=== PATIENT | male | born 1950 | race Caucasian/White ===

== ENCOUNTER 2019-01-22 19:39 | Inpatient (IN) | payer MEDICARE ==
[~2019-01-22] VITALS: Ht 182.9 cm; Wt 98.6 kg
--- NOTE | ~2019-01-22 | HEMODYNAMI ---
PATIENT:JUANITA GARVEY MEDICAL RECORD: [id number] : 50 [address] [id number] ADMISSION DATE: 01/22/19 Generatedon:01/24/201915:48 Patient name: JUANITA GARVEY Patient #: [id number] SSN: : 1950 Date of study: 01/24/2019 Page: Of Hemodynamic Procedure Report Patient Data Patient Demographics Procedure consent was obtained First Name: JUANITA Gender: Male Last Name: GURU : 1950 Patient #: [id number] Age: 68 year(s) Race: Additional ID: [id number] Contact details Address: [address] [place] [address] State: [place] City: [place] Zip code: [address] Past Medical History Allergies Allergen Reaction Date Comments Reported Penicillins 01/24/2019 Admission Admission Data Admission Date: 01/22/2019 Admission Time: 20:02 Room #: [facility] Height (in.): 72 BSA: 2.22 (m2) Height (cm.): 182.88 BMI: 29.9 (kg/m2) Weight (lbs.): 220.46 Weight (kg.): 100 Lab Results Lab Result Date: 01/24/2019 Lab Result Time: 0:00 Biochemistry Name Units Result Min Max BUN mg/dl 19 --(----)*- 7 18 Creatinine mg/dl 0.9 --(-*--)-- 0.6 1.3 eGFR ml/min 88.78595 -*(----)-- 90 120 NONAFRICAN CBC Name Units Result Min Max Hematocrit % 37.4 *-(----)-- 42 54 Hemoglobin g/dl 12.7 -*(----)-- 13.5 17.5 Procedure Procedure Types Cath Procedure Diagnostic Procedure LHC LH w/Coronaries Sedation Charges Moderate Sedation up to 45 minutes PCI Procedure Coronary Stent Coronary Stent Initial Procedure Description Procedure Date Procedure Date: 01/24/2019 Procedure Start Time: 14:38 Procedure End Time: 15:41 Procedure Staff Name Function Augustin Dior MD Performing Physician Mavis Bone RT Monitor Marcie Chirinos RT Scrub Juan Irwin RN Nurse Procedure Data Cath Procedure Fluoroscopy Diagnostic fluoroscopy Total fluoroscopy Time: time: 20.8 min 20.8 min Diagnostic fluoroscopy Total fluoroscopy dose: dose: 3195 mGy 3195 mGy Contrast Material Contrast Material Type Amount (ml) Isovue 300 210 Entry Location Entry Primary Successful Side Size Upsize Upsize Entry Closure Succes sful Closure Location (Fr) 1 (Fr) 2 (Fr) Remarks Device Remarks Femoral Right 5 Fr 6 Fr 6 Fr Exoseal artery Short Long Estimated blood loss: 10 ml Diagnostic catheters Device Type Used For End Catheter Placement MULTIPACK JL 4.0 5Fr Procedure catheter MULTIPACK 3DRC 5Fr Procedure catheter MULTIPACK Pigtail 5 Fr Procedure catheter Procedure Complications No complications Procedure Medications Medication Administration Route Dosage 0.9% NaCl I.V. 100 ml/hr Oxygen 9 l/min Heparin Flush Bag added to field 2 bags (1000units/500ml NS) Lidocaine 2% added to field 20 Versed I.V. 0.5 mg Fentanyl I.V. 25 mcg Fentanyl I.V. 25 mcg Heparin Bolus I.V. 5000 units Fentanyl I.V. 50 mcg Versed I.V. 0.5 mg Plavix P.O. 75 mg Hemodynamics Rest BSA: 2.22 (m2) O2 Consumption: Estimated: 257.52 (ml/min) O2 Consumption indexed : Estimated:116 (ml/min/m) Heart Rate: 70 (bpm) Pressure Samples Time Site Value (mmHg) Purpose Heart Use Rate(bpm) 14:45 LV 164/13,17 Snapshot 73 14:45 AO 167/90(116) Pullback 65 Gradients Valve Time Site Site 2 Mean SEP/DFP Peak To Heart Use 1 (mmHg) (sec/min) Peak Rate (mmHg) (bpm) Aortic 14:45 LV AO 10 17 65 167/90(116) Calculations Valve P-P Mean Valve Index Valve Source Name Gradient Area Flow (cm2) Aortic 10 10 Snapshots Pre Cath Intra NCS Post Cath Vital Signs Time Heart Resp SPO2 etCO2 NIBP (mmHg) Rhythm Pain Sedation Rate (ipm) (%) (mmHg) Status Level (bpm) 14:22:12 79 21 91 0 163/93(140) A-Fib 0 (11) 9(A) , No pain 14:26:38 69 23 91 0 161/86(133) A-Fib 0 (11) 9(A) , No pain 14:31:02 71 21 90 0 153/84(124) A-Fib 0 (11) 9(A) , No pain 14:35:26 72 20 90 0 158/84(120) A-Fib 0 (11) 9(A) , No pain 14:40:38 70 20 90 0 155/86(117) A-Fib 0 (11) 9(A) , No pain 14:45:02 79 20 94 0 157/86(124) A-Fib 0 (11) 9(A) , No pain 14:49:28 70 21 90 0 156/83(124) A-Fib 0 (11) 9(A) , No pain 14:53:49 78 22 92 0 144/77(117) A-Fib 0 (11) 9(A) , No pain 14:58:13 71 20 90 0 146/73(109) A-Fib 0 (11) 9(A) , No pain 15:02:27 74 21 90 0 83/44(64) A-Fib 0 (11) 9(A) , No pain 15:07:24 78 22 88 0 123/67(111) A-Fib 0 (11) 9(A) , No pain 15:11:38 62 20 89 0 144/84(111) A-Fib 0 (11) 9(A) , No pain 15:16:00 73 19 89 0 142/78(119) A-Fib 0 (11) 9(A) , No pain 15:20:14 79 19 89 0 140/85(121) A-Fib 0 (11) 9(A) , No pain 15:24:34 72 21 88 0 129/73(103) A-Fib 0 (11) 9(A) , No pain 15:28:56 76 21 88 0 123/59(88) A-Fib 0 (11) 9(A) , No pain 15:33:10 68 21 89 0 123/69(102) A-Fib 0 (11) 9(A) , No pain 15:38:15 79 24 92 0 152/81(125) A-Fib 0 (11) 9(A) , No pain Medications Time Medication Route Dose Verified Delivered Reason Notes Effectiveness by by 14:21:02 0.9% NaCl I.V. 100 Juan Juan Per physician ml/hr Alida Irwin RN RN 14:21:27 Oxygen high 9 Juan Juan for low 02 sats flow l/min Alida NEGRETE RN RN 14:21:39 Heparin Flush added 2 Juan Juan used for Bag to bags Alida Irwin procedure (1000units/500ml field RN RN NS) 14:21:49 Lidocaine 2% added 20ml Juan Juan for local to vial Alida Irwin anesthetic field RN RN 14:38:45 Versed I.V. 0.5 Juan Juan for sedation mg Alida Irwin RN RN 14:38:55 Fentanyl I.V. 25 Juan Juan for sedation mcg Alida Irwin RN RN 14:55:03 Fentanyl I.V. 25 Juan Juan for sedation mcg Alida Irwin RN RN 14:55:15 Heparin Bolus I.V. 5000 Juan Juan for units Alida Irwin anticoagulation RN RN 15:07:32 Fentanyl I.V. 50 Juan Juan for chest pain mcg Alida Irwin RN RN 15:33:02 Versed I.V. 0.5 Juan Juan for sedation mg Alida Irwin RN RN 15:35:46 Plavix P.O. 75 mg Juan Juan for Alida Irwin antiplatelet RN RN therapy Procedure Log Time Note 13:54:33 Informed consent obtained and on chart 13:56:16 Patient Weight : 220.46 lbs 13:56:24 Procedure Status Urgent Heart Cath (IP). 13:56:26 Time tracking: Regular hours (M-F 7:00 - 5:00) 13:56:31 Plan of Care:Hemodynamics will remain stable., Cardiac rhythm will remain stable., Comfort level will be maintained., Respiratory function will remain adequate., Patient/ family verbilizes understanding of procedure., Procedure tolerated without complication., Recovers from procedure without complications.. 13:58:33 Patient Height : 72 inches 13:59:56 Patient allergic to Penicillins 14:00:44 Lab Result : BUN 19 mg/dl 14:00:44 Lab Result : Creatinine 0.9 mg/dl 14:00:44 Lab Result : eGFR NONAFRICAN 88.81010 ml/min 14:00:44 Lab Result : Hemoglobin 12.7 g/dl 14:00:44 Lab Result : Hematocrit 37.4 % 14:02:41 Juan Irwin RN sent for patient. Start room use. 14:20:52 Vital chart was started 14:21:02 0.9% NaCl 100 ml/hr I.V. was administered by Juan Irwin RN; Per physician; 14:21:27 Oxygen 9 l/min high flow NC was administered by Juan Irwin RN; for low 02 sats; 14:21:39 Heparin Flush Bag (1000units/500ml NS) 2 bags added to field was administered by Juan Irwin RN; used for procedure; 14::49 Lidocaine 2% 20ml vial added to field was administered by Juan Irwin RN; for local anesthetic; 14:23:16 Patient received from CVICU to CCL 1 Alert and oriented. Tansferred to table in Supine position. 14:23:17 Warm blankets applied, and jane hugger turned on for patient comfort. 14:23:18 Correct patient and procedure confirmed by team. 14:23:18 ECG and BP/O2 sat monitors applied to patient. 14:23:23 Full Disclosure recording started 14:23:23 Pre-procedure instructions explained to patient. 14:23:23 Pre-op teaching completed and patient verbalized understanding. 14:23:26 Family in waiting room. 14:23:27 Patient NPO since Midnight. 14:23:32 Is the patient allergic to Iodine/contrast media? No. 14:23:32 Is patient on blood thinner?Yes 14:23:49 PRELOADED ON PLAVIX 9.18 14:23:51 Patient diabetic? No. 14:23:53 Previous problem with sedation/anesthesia? No ? 14:23:54 Snore? Yes 14:23:55 Sleep apnea? Yes 14:23:56 Deviated septum? No 14:23:56 Opens mouth fully? Yes 14:23:58 Sticks out tongue? Yes 14:24:01 Airway obstruction? No ? 14:24:02 Dentures? No ? 14:24:06 Pre procedure: right dorsailis pedis pulse Doppler 14:24:37 IV patent on arrival in right wrist with 0.9% NaCl at [facility]. 14:24:40 Lab results completed and on chart. 14:24:55 Right groin area was prepped with chlora-prep and draped in sterile fashion 14::56 Alarms reviewed by R. N. 14::56 Sharps counted by scrub and verified by R.N. 14:25:07 Baseline sample Acquired. 14:25:11 Rhythm: atrial fibrillation 14:26:04 Use device set Femoral Dx 14:26:05 ACIST Syringe (97623) opened to sterile field. 14:26:05 Bag Decanter (2002S) opened to sterile field. 14:26:06 ACIST Hand Control (24855) opened to sterile field. 14:26:07 ACIST Manifold (19397) opened to sterile field. 14:26:08 Tegaderm 4 x 4 (1626W) opened to sterile field. 14:26:08 Medline Cath Pack ([id number]) opened to sterile field. 14:26:09 DIAGNOSTIC Multipack 5Fr catheter set (VZ9647) opened to sterile field. 14:26:10 SHEATH 5FR Gilberts (OLG154) opened to sterile field. 14:26:10 EMERALD Guide Wire (407-549) opened to sterile field. 14:30:09 Zero performed for pressure channel P1 14:32:43 --------ALL STOP TIME OUT------ 14:32:44 Final Timeout: patient, procedure, and site verified with staff and physician. All members of the team are in agreement. 14:32:55 Right groin site verified by team. 14:32:59 Fire Safety Assessment: A--An alcohol-based skin anteseptic being used preoperatively., C--Open oxygen or nitrous oxide is being used., D--An ESU, laser, or fiber-optic light is being used. 14:33:05 Physical assessment completed. ASA score P 2 - A patient with mild systemic disease as per Augustin Dior MD. 14:33:17 2) 60-89 Mildly reduced kidney function, and other findings (as for stage 1) point to kidney disease. 14:33:20 Maximum allowable contrast dose (3.7 X eGFR X 0.75)247 ml. 14:33:23 Sedation plan: IV Moderate Sedation Medication:Versed, Fentanyl 14:38:01 Procedure started. 14:38:18 Local anesthetic to right femoral artery with Lidocaine 2% by Augustin Dior MD.INITIAL ACCESS ONLY 14:38:45 Versed 0.5 mg I.V. was administered by Juan Irwin RN; for sedation; 14:38:55 Fentanyl 25 mcg I.V. was administered by Juan Irwin RN; for sedation; 14:39:08 A 5 Fr sheath was inserted into the Right Femoral artery 14:39:31 A MULTIPACK JL 4.0 5Fr catheter was advanced over the wire and used for Procedure. 14:42:29 LCA angiography performed. 14:42:31 Catheter removed. 14:42:35 A MULTIPACK 3DRC 5Fr catheter was advanced over the wire and used for Procedure. 14:43:52 RCA angiography performed. 14:43:58 Catheter removed. 14:44:12 A MULTIPACK Pigtail 5 Fr catheter was advanced over the wire and used for Procedure. 14:44:53 LV gram done using BOND 14:44:55 Injector settings: Ml/sec: 10, Volume: 20, 14:45:30 LV hemodynamics recorded. 14:45:48 EF : 55 % 14:45:49 Catheter removed. 14:46:17 SHEATH 6FR Gilberts (HLW641) opened to sterile field. 14:46:17 GUIDE 6FR XBLAD 3.5 catheter ([id number]) opened to sterile field. 14:46:18 WHISPER 300cm guide wire ([id number]) opened to sterile field. 14:46:18 INFLATOR Merit BasixCompak (VV7043) opened to sterile field. 14:46:44 Sheath upsized to a 6 Fr Short. 14:49:09 SHEATH 6FR Brite Tip 35cm (626143E) opened to sterile field. 14:50:08 Sheath upsized to a 6 Fr Long. 14:50:15 6 Fr XBLAD 3.5 guide catheter was inserted over the wire 14:51:59 Guide Catheter removed. unable to cannulate vessel. 14:52:07 GUIDE 6FR XBLAD 4.0 catheter ([id number]) opened to sterile field. 14:52:28 6 Fr XBLAD 4 guide catheter was inserted over the wire 14:54:45 Pre PCI Site: [place] pLAD has 95% stenosis. 14:54:51 WHISPER 300 wire advanced. 14:55:03 Fentanyl 25 mcg I.V. was administered by Juan Irwin RN; for sedation; 14:55:15 Heparin Bolus 5000 units I.V. was administered by Juan Irwin RN; for anticoagulation; 14:56:32 Wire advanced across lesion. 15:00:06 Inflate balloon Inflation number: 1 A Mozec Rx 2.5 x 14 balloon was prepped and advanced across the Prox LAD , then inflated to 10 YONI for 0:00 (min:sec) . 15:00:36 Inflation number: 2 The Mozec Rx 2.5 x 14 balloon was reinflated across the Prox LAD , to 10 YONI for 0:00 (min:sec) . 15:01:00 Inflation number: 3 The Mozec Rx 2.5 x 14 balloon was reinflated across the Prox LAD , to 14 YONI for 0:00 (min:sec) . 15:02:09 Inflation number: 4 The Mozec Rx 2.5 x 14 balloon was reinflated across the Prox LAD , to 12 YONI for 0:00 (min:sec) . 15:02:30 Inflation number: 5 The Mozec Rx 2.5 x 14 balloon was reinflated across the Prox LAD , to 12 YONI for 0:00 (min:sec) . 15:03:16 Balloon removed over the wire. 15:06:03 The EMERGE OTW 2.0 x 15 balloon ([id number]) was advanced and then removed because it was opened but not used 15:06:44 BALLOON USED TO EXCHANGE FOR A LONG CHOICE ES 300 15:07:00 CHOICE PT Extra Support J 300cm guide wire ([id number]) opened to sterile field. 15:07:32 Fentanyl 50 mcg I.V. was administered by Juan Irwin RN; for chest pain; 15:09:35 Inflate balloon Inflation number: 6 A EMERGE OTW 2.0 x 15 balloon ([id number]) was prepped and advanced across the Prox LAD , then inflated to 8 YONI for 0:00 (min:sec) . 15:10:04 Inflation number: 7 The EMERGE OTW 2.0 x 15 balloon ([id number]) was reinflated across the Prox LAD , to 8 YONI for 0:00 (min:sec) . 15:11:11 Balloon removed over the wire. 15:14:05 Inflate balloon Inflation number: 8 A EMERGE OTW 2.5 x 15 balloon ([id number]) was prepped and advanced across the Prox LAD , then inflated to 10 YONI for 0:00 (min:sec) . 15:14:43 Inflation number: 9 The EMERGE OTW 2.5 x 15 balloon ([id number]) was reinflated across the Prox LAD , to 10 YONI for 0:00 (min:sec) . 15:15:29 Inflation number: 10 The EMERGE OTW 2.5 x 15 balloon ([id number]) was reinflated across the Prox LAD , to 14 YONI for 0:00 (min:sec) . 15:16:10 Inflation number: 11 The EMERGE OTW 2.5 x 15 balloon ([id number]) was reinflated across the Prox LAD , to 14 YONI for 0:00 (min:sec) . 15:16:41 Inflation number: 12 The EMERGE OTW 2.5 x 15 balloon ([id number]) was reinflated across the Prox LAD , to 14 YONI for 0:00 (min:sec) . 15:18:34 Balloon removed over the wire. 15:23:22 Place stent Inflation Number: 13 A INTEGRITY OTW 2.5 X 18 stent ([id number]) was prepped and advanced across the Prox LAD . The stent was deployed at 14 YONI for 0:00 (min:sec) . 15:24:02 Stent catheter was removed intact over wire. 15:27:49 Place stent Inflation Number: 14 A INTEGRITY RX 2.25 x 14 stent ([id number]) was prepped and advanced across the Prox LAD . The stent was deployed at 16 YONI for 0:00 (min:sec) . 15:28:21 Stent catheter was removed intact over wire. 15:32:28 Place stent Inflation Number: 15 A INTEGRITY OTW 3.0 X 12 stent ([id number]) was prepped and advanced across the Prox LAD . The stent was deployed at 14 YONI for 0:00 (min:sec) . 15:32:40 Stent catheter was removed intact over wire. 15:33:02 Versed 0.5 mg I.V. was administered by Juan Irwin RN; for sedation; 15:34:07 Wire removed. 15:34:08 Guide catheter removed. 15:34:20 LONG SHEATH EXCHANGED FOR A SHORT SHEATH 15:34:23 EXOSEAL 6Fr (EX600) opened to sterile field. 15:35:26 Sheath removed intact; hemostasis achieved with Exoseal to the Right Femoral artery. 15:35:39 Procedure ended.(Physican Out) 15:35:46 Plavix 75 mg P.O. was administered by Juan Irwin RN; for antiplatelet therapy; 15:36:46 Contrast amount:Isovue 300 210ml. 15:36:51 Fluoroscopy time 20.80 minutes. 15:37:00 Flurop Dose total: 3195 15:37:00 Fluoroscopy dose: 3195 mGy 15:37:08 Dose Area Product 883646 mGy/cm. 15:37:10 Maximum allowable dose exceeded? No. 15:37:11 Sharps counted by scrub and verified by R.N. 15:37:15 Post-op/insertion site Right Femoral artery dressed using a 4 x 4 and Tegaderm. 15:37:19 Post-procedure physical assessment completed. ASA score P 2 - A patient with mild systemic disease as per Augustin Dior MD. 15:37:26 Estimated blood loss: 10 ml 15:37:32 Post procedure rhythm: atrial fibrillation 15:40:07 Post procedure instruction explained to patient.Patient verbalizes understanding. 15:40:08 Patient needs reinforcement of post procedure teaching. 15:40:30 Procedure type changed to Cath procedure, Diagnostic procedure, LHC, LHC w/Coronaries, Sedation Charges, Moderate Sedation up to 45 minutes, PCI procedure, Coronary Stent, Coronary Stent Initial 15:41:01 Procedure and supply charges have been captured, reviewed, submitted and are correct. 15:41:03 Procedure Complication : No complications 15:41:05 Vital chart was stopped 15:41:08 Report given to CVICU. 15:41:09 See physician's report for complete and final results. 15:41:12 Patient transfered to CVICU with Bed. 15:41:14 Procedure ended. 15:41:14 Full Disclosure recording stopped 15:41:18 End room use (Document Last) 15:46:05 End room use (Document Last) 15:47:35 End room use (Document Last) Intervention Summary Intervention Notes Time ActionType Lesion and Equipment Action# Pressure Duration Attributes Used 15:00:06 Inflate Prox LAD Mozec Rx 2.5 1 10 00:00 balloon x 14 balloon 15:00:36 Reinflate Prox LAD Mozec Rx 2.5 2 10 00:00 balloon x 14 balloon 15:01:00 Reinflate Prox LAD Mozec Rx 2.5 3 14 00:00 balloon x 14 balloon 15:02:09 Reinflate Prox LAD Mozec Rx 2.5 4 12 00:00 balloon x 14 balloon 15:02:30 Reinflate Prox LAD Mozec Rx 2.5 5 12 00:00 balloon x 14 balloon 15:06:03 Discard EMERGE OTW Balloon 2.0 x 15 balloon ([id number]) 15:09:35 Inflate Prox LAD EMERGE OTW 6 8 00:00 balloon 2.0 x 15 balloon ([id number]) 15:10:04 Reinflate Prox LAD EMERGE OTW 7 8 00:00 balloon 2.0 x 15 balloon ([id number]) 15:14:05 Inflate Prox LAD EMERGE OTW 8 10 00:00 balloon 2.5 x 15 balloon ([id number]) 15:14:43 Reinflate Prox LAD EMERGE OTW 9 10 00:00 balloon 2.5 x 15 balloon ([id number]) 15:15:29 Reinflate Prox LAD EMERGE OTW 10 14 00:00 balloon 2.5 x 15 balloon ([id number]) 15:16:10 Reinflate Prox LAD EMERGE OTW 11 14 00:00 balloon 2.5 x 15 balloon ([id number]) 15:16:41 Reinflate Prox LAD EMERGE OTW 12 14 00:00 balloon 2.5 x 15 balloon ([id number]) 15:23:22 Place stent Prox LAD INTEGRITY 13 14 00:00 OTW 2.5 X 18 stent ([id number]) 15:27:49 Place stent Prox LAD INTEGRITY RX 14 16 00:00 2.25 x 14 stent ([id number]) 15:32:28 Place stent Prox LAD INTEGRITY 15 14 00:00 OTW 3.0 X 12 stent ([id number]) Device Usage Item Name Manufacture Quantity Catalog Number Hospital Part Current Min imal Lot# / Charge Number Stock Stock Serial# Code ACIST Acist 1 91384 342223 668856 925292 20 Syringe OptMed (29435) WorkThink Inc Bag Decanter Microtek 1 629163 36948 819562 5 (2002S) Medical Inc. ACIST Hand Acist 1 02233 124471 089136 246343 5 Control Medical (06573) Systems Inc ACIST Acist 1 04063 093219 508082 047003 5 Manifold Medical (74340) Systems Inc Tegaderm 4 x 3M 1 1626W 832900 732003 075324 5 4 (1626W) Medline Cath Medline 1 [id number] 335962 27402 657193 5 Pack ([id number]) DIAGNOSTIC Cardinal 1 FK4460 529941 42296 150820 30 Multipack Technimark 5Fr catheter set (XL9481) SHEATH 5FR Terumo 1 VRW487 586200 304221 027512 5 Gilberts (SFD742) EMERALD Cardinal 1 502-455 226069 423135 607122 5 Guide Wire Health (502-455) MULTIPACK JL Cardinal 1 153444 5 4.0 5Fr Health catheter MULTIPACK Cardinal 1 454809 5 3DRC 5Fr Health catheter MULTIPACK Cardinal 1 594644 5 Pigtail 5 Fr Health catheter SHEATH 6FR Terumo 1 GIX961 834018 062948 956506 40 Gilberts (LFY706) GUIDE 6FR Cardinal 1 41382513 711901 112261 582373 10 XBLAD 3.5 Health catheter (21700861) WHISPER Dumont 1 [id number] 632015 717482 195487 5 300cm guide Vascular wire (0273821BU) INFLATOR Merit 1 UL7914 634157 494275 515289 15 [facility] BasixCompak (NA3016) SHEATH 6FR Cardinal 1 510644G 433327 788221 366233 1 Brite Tip Health 35cm (038636T) GUIDE 6FR Cardinal 1 58722459 734143 506120 666602 3 XBLAD 4.0 Health catheter (96300674) Mozec Rx 2.5 Cardinal 1 STV00089 252927 67099 093587 5 UMOE02 x 14 balloon Health EMERGE OTW Docena 1 [id number] 035858 539837 144561 5 03722040 2.0 x 15 Scientific balloon ([id number]) CHOICE PT Docena 1 [id number] 060747 882433 695352 5 Extra Scientific Support J 300cm guide wire (5833588X7) EMERGE OTW Docena 1 [id number] 404804 116603 199482 5 [id number] 2.5 x 15 Scientific balloon ([id number]) INTEGRITY Medtronic 1 [id number] 103095 336402 223198 6 [id number] OTW 2.5 X 18 stent ([id number]) INTEGRITY RX Medtronic 1 [id number] 166361 359745 773364 5 [id number] 2.25 x 14 stent ([id number]) INTEGRITY Medtronic 1 [id number] 891682 246226 980478 5 [id number] OTW 3.0 X 12 stent ([id number]) EXOSEAL 6Fr Cardinal 1 EX600 249519 544941 398250 10 (EX600) Health Signature Audit Paint Bank Stage Time Signature Unsigned Intra-Procedure 01/24/2019 Mavis Bone 3:46:05 PM RT(R) Intra-Procedure 01/24/2019 Juan 3:47:35 PM Alida CABELLO Intra-Procedure 01/24/2019 Augustin Villarreal 3:47:57 PM Tomas AGUERO [facility] [address] [place] [address]
--- NOTE | 2019-01-22 21:50 | NUR ---
PT RECIEVED FROM EMS, REPORT RECIEVED. PT REPORTS DULL, THROBBING LEFT SIDE BACK PAIN "N RIBS," 3/10 PAIN. PT ARRIVED ON BIPAP, LT HAND PIV TO SL, RT FOREARM PIV TO SL, SOB NOTED. ASSESSMENT COMPLETED, SEE FLOWSHEET. PT DENIES CHEST PAIN AT THIS TIME, CONTROLLED A-FIB, HEARTBEAT IRREGULAR. WILL CONTINUE TO MONITOR.
[2019-01-22 22:00] VITALS: BP 151/82
[2019-01-22] MEDS ORDERED: NORVASC5 MG PO (22:06)
[2019-01-22] MEDS ORDERED: LISINOPRIL20 MG PO (22:07)
[2019-01-22] MEDS ORDERED: LEXAPRO20 MG PO (22:07)
[2019-01-22] MEDS ORDERED: FUROSEMIDE40 MG PO (22:09)
[2019-01-22] MEDS ORDERED: CATAPRES0.2 MG PO (22:17)
[2019-01-22] MEDS ORDERED: BAYER CHEWABLE81 MG PO (22:20)
[2019-01-22] MEDS ORDERED: IBUPROFEN200 MG PO (22:24)
[2019-01-22] MEDS ORDERED: OMEPRAZOLE20 M1 PO (22:26)
[2019-01-22 22:27] VITALS: BP 145/89; BMI 30.1
--- NOTE | 2019-01-22 22:45 | NUR ---
DEBBIE JACOB APN IN ROOM, UPDATED ON STATUS. NEW ORDERS RECIEVED.
[2019-01-22 23:00] VITALS: BP 140/80
[2019-01-23] VITALS (22 sets, daily range): BP systolic 137–168; BP diastolic 70–96; Ht 182.9 cm; Wt 98.6 kg
[2019-01-23 00:06] LABS: HEMATOCRIT 39.3 % (42.0-54.0); HEMOGLOBIN 13.2 g/dL (13.5-17.5); LYMPHOCYTES 4.2 % (15-50); MCH 29.9 pg (26.0-34.0); MCHC 33.6 g/dL (31.0-37.0); MCV 88.9 fL (80.0-100.0); MEAN PLATELET VOLUME 9.7 fL (7.4-10.4); NEUTROPHILS 94.4 % (40-80); PLATELET COUNT 187 10x3/uL (130-400); RBC 4.42 10x6/uL (4.20-6.10); RDW 16.5 % (11.5-14.5); WBC 9.2 10x3/uL (4.8-10.8)
[2019-01-23 00:10] LABS: INR 1.21 (0.85-1.17); PROTIME 14.8 SECONDS (11.6-15.0)
[2019-01-23 00:11] LABS: APTT 55.8 SECONDS (22.8-39.4)
[2019-01-23 00:21] LABS: D-DIMER-QUANTITATIVE 13.09 ug/mLFEU (0.20-0.54)
[2019-01-23 00:25] LABS: ALBUMIN 2.8 g/dL (3.4-5.0); ALKALINE PHOSPHATASE 78 U/L (46-116); ALT (SGPT) 12 U/L (10-68); BILIRUBIN - TOTAL 0.52 mg/dL (0.2-1.3); CALC OSMOLALITY 286 mosm/kg (275-300); CALCIUM 7.9 mg/dL (8.5-10.1); CARBON DIOXIDE 27.3 mmol/L (21.0-32.0); CHLORIDE - SERUM 105 mmol/L (98-107); CREATININE - SERUM 1.2 mg/dL (0.6-1.3); GLUCOSE 152 mg/dL (74-106); POTASSIUM - SERUM 4.3 mmol/L (3.5-5.1); PROTEIN - SERUM 7.9 g/dL (6.4-8.2); SODIUM 142 mmol/L (136-145); UREA NITROGEN 16 mg/dL (7-18); eGFR NON AFRICAN AMERICAN 64 mL/min (90-120)
[2019-01-23 00:31] LABS: APPEARANCE CLEAR (CLEAR); BILIRUBIN NEGATIVE (NEGATIVE); COLOR YELLOW (YELLOW); GLUCOSE NEGATIVE (NEGATIVE); KETONE NEGATIVE (NEGATIVE); PROTEIN NEGATIVE (NEGATIVE); UROBILINOGEN NORMAL (NORMAL)
[2019-01-23 00:43] LABS: CKMB 10.8 U/L (0.0-3.6); CREATINE KINASE 297 UL (21-232); PHOSPHOROUS 5.1 mg/dL (2.5-4.9)
[2019-01-23 00:54] LABS: TROPONIN-I 2.874 ng/mL (0.000-0.060)
--- NOTE | 2019-01-23 01:03 | NUR ---
DR MARINELLI PAGED REGARDING ELEVATED CARDIAC ENZYMES, AWAITING CALL BACK.
--- NOTE | 2019-01-23 01:05 | NUR ---
UPDATED ON PT STATUS, AND NEW ORDERS RECIEVED FROM DR MARINELLI.
--- NOTE | 2019-01-23 04:17 | NUR ---
PT RESTING IN BED, BIPAP IN PLACE, C/O PAIN IN NECK, UNABLE TO LAY FLAT FOR CT SCAN. DEBBIE JACOB APN UPDATED ON STATUS.
--- NOTE | 2019-01-23 05:00 | NUR ---
PT RESTIMG IN BED, BIPAP IN PLACE. NO ACUTE DISTRESS NOTED.
--- NOTE | 2019-01-23 05:00 | NUR ---
PT SEDATED, AROUSES TO VOICE. NO ACUTE DISTRESS NOTED AT THIS TIME.
[2019-01-23 06:00] LABS: BASOPHILS 0 % (0-2); EOSINOPHILS 0 % (0-7); HEMATOCRIT 37.9 % (42.0-54.0); IMMATURE GRANULOCYTES 0.1 % (0-5); LYMPHOCYTES 7.7 % (15-50); MCH 29.8 pg (26.0-34.0); MCHC 34.3 g/dL (31.0-37.0); MONOCYTES 2.3 % (2-11); NEUTROPHILS 89.9 % (40-80); PLATELET COUNT 170 10x3/uL (130-400); RBC 4.36 10x6/uL (4.20-6.10); RDW 16.3 % (11.5-14.5); WBC 6.9 10x3/uL (4.8-10.8)
[2019-01-23 06:33] LABS: MCV 86.9 fL (80.0-100.0)
[2019-01-23 06:45] LABS: CALC OSMOLALITY 280 mosm/kg (275-300); CALCIUM 8.3 mg/dL (8.5-10.1); CARBON DIOXIDE 25.3 mmol/L (21.0-32.0); CHLORIDE - SERUM 103 mmol/L (98-107); CKMB 7.7 U/L (0.0-3.6); CREATINE KINASE 244 UL (21-232); CREATININE - SERUM 1.1 mg/dL (0.6-1.3); GLUCOSE 146 mg/dL (74-106); PHOSPHOROUS 4.8 mg/dL (2.5-4.9); POTASSIUM - SERUM 4.2 mmol/L (3.5-5.1); PRO BNP 4331 pg/mL (0-125); SODIUM 138 mmol/L (136-145); UREA NITROGEN 18 mg/dL (7-18); eGFR NON AFRICAN AMERICAN 71 mL/min (90-120)
--- NOTE | 2019-01-23 07:00 | NUR ---
REPORT RECEIVED. ASSESSMENT COMPLETE PER FLOW SHEET. PT RESTING COMFORTALBY. DENIES NEEDS WILL CONTINUE TO MONITOR
--- NOTE | 2019-01-23 08:16 | NUR ---
pt back from ct tolerated well. denies needs will continue to monitor
--- NOTE | 2019-01-23 11:00 | NUR ---
REASSESSMENT COMPLETE PER FLOW SHEET. VSS. NO NEW CHANGES WILL CONTINUE TO MONITOR
--- NOTE | 2019-01-23 11:24 | NUR ---
PT AT BEDSIDE. PATIENT STATED HE WAS IN PAIN. NORCO GIVEN. PATIENT THEN STATED HE COULDNT DO PT BECAUSE HE FELL AT HOME AND HIS BACK AND RIBS ARE ACHING VERY BADLY. PT STATED THEY WILL COME BACK AFTER AN XRAY IS DONE BEFORE MOBILIZING HIM.
[2019-01-23 11:49] LABS: CKMB 6.5 U/L (0.0-3.6); CREATINE KINASE 276 UL (21-232)
[2019-01-23 11:51] LABS: TROPONIN-I 1.511 ng/mL (0.000-0.060)
--- NOTE | 2019-01-23 16:59 | NUR ---
PATIENT RECEVIED FROM ICU TO BED CV05 VIA BED. VSS. CM - 76, NSR, BBS - CLEAR WITH EXPIRATORY WHEEZES NOTED, ON O2 VIA NC AT 7 LPM WITH SPO2 - 92%, IV 18 GA TO RIGHT FOREARM INFUSING ANTIBIOTIC AT 250 CC/HR, NS AT KVO 5 CC/HR, WITH NO S/S OF INFILTRATION. PATIENT ALERT AND ORIENTED X 4. IV 20 GAUGE TO LEFT HAND NSL. PATIENT RATES PAIN TO LEFT SIDE 4/10.
--- NOTE | 2019-01-23 17:10 | NUR ---
UNABLE TO PALPATE DORSALIS PEDIS OR POSTERIOR TIBIAL PULSES TO LOWER EXTREMITIES. ABLE TO OBTAIN DOPPLER SIGNAL TO DORSALIS PEDIS BUT NOT FOR POSTERIOR TIBIAL.
--- NOTE | 2019-01-23 17:22 | MORECARE ---
CASE MANAGEMENT DISCHARGE SUMMARY PATIENT: JUANITA GARVEY UNIT: [id number] ADM DATE: 01/22/19 AGE: 68 : 50 SEX: M ROOM/BED: D.[facility] AUTHOR: ALLAN CHAND PHYSICIAN: REFERRING PHYSICIAN: LUANA POPE MD DATE OF SERVICE: 01/23/19 Discharge Plan Patient Name: JUANITA GARVEY Facility: [facility]:[place] : 1950 Planned Disposition: Home Anticipated Discharge Date: Discharge Date: Expected LOS: Initial Reviewer: [email or web address] Initial Review Date: 01/23/2019 Generated: 01/23/19 6:22 pm Patient Name: JUANITA GARVEY Page [phone] at 1722 All edits/amendments must be made on the electronic document DICTATION DATE: 01/23/191720 CORN CROP SUPERVISOR: OLIVIER 01/23/191720 RPT#: [id number] DC DATE: STATUS: ADM IN [facility] [address] [place] [address] END OF REPORT
--- NOTE | 2019-01-23 17:38 | MORECARE ---
CASE MANAGEMENT DISCHARGE SUMMARY PATIENT: JUANITA GARVEY UNIT: [id number] ADM DATE: 01/22/19 AGE: 68 : 50 SEX: M ROOM/BED: D.[facility] AUTHOR: ALLAN CHAND PHYSICIAN: REFERRING PHYSICIAN: LUANA POPE MD DATE OF SERVICE: 01/23/19 Discharge Plan Patient Name: JUANITA GARVEY Facility: [facility]:[place] : 1950 Planned Disposition: Home Anticipated Discharge Date: Discharge Date: Expected LOS: Initial Reviewer: [email or web address] Initial Review Date: 01/23/2019 Generated: 01/23/19 6:38 pm DCPIA - Discharge Planning Initial Assessment Updated by [email or web address]: Viry Hays on 01/23/19 5:30 pm * Is the patient Alert and Oriented? Yes * How many steps to enter\exit or inside your home? * PCP [facility] [place] * Pharmacy [facility] * Preadmission Environment Home Alone * ADLs Independent * Other Equipment B/P CUFF, WALKER, SHOWER CHAIR, CANE * List name and contact numbers for known caregivers / representatives who currently or will assist patient after discharge: LISY - DAUGHTER- [phone] CAROLE - - [phone] * Verbal permission to speak to the caregivers and representatives has been obtained from the patient. N/A * Community resources currently utilized Meals on Wheels * Additional services required to return to the preadmission environment? No * Can the patient safely return to the preadmission environment? Yes * Has this patient been hospitalized within the prior 30 days at any hospital? No Last DP export: 01/23/19 4:22 p Patient Name: JUANITA GARVEY Page [id number] at 1738 All edits/amendments must be made on the electronic document DICTATION DATE: 01/23/191736 ARMATURE COIL WINDER: OLIVIER 01/23/191736 RPT#: [id number] DC DATE: STATUS: ADM IN [facility] [address] [place] [address] END OF REPORT
--- NOTE | 2019-01-23 17:40 | NUR ---
DR. GODOY AT ROOM UPDATED AND EXAMINES PATIENTS FEET AND LEGS. TRIMS PATIENTS TOE NAILS AND ORDERS AMMONIUM LACTATE TO BE APPLIED DAILY TO FEET AND LEGS.
--- NOTE | 2019-01-23 17:45 | MORECARE ---
CASE MANAGEMENT DISCHARGE SUMMARY PATIENT: JUANITA GARVEY UNIT: [id number] ADM DATE: 01/22/19 AGE: 68 : 50 SEX: M ROOM/BED: D.[facility] AUTHOR: MANNIE,DOC PHYSICIAN: REFERRING PHYSICIAN: LUANA POPE MD DATE OF SERVICE: 01/23/19 Discharge Plan Patient Name: JUANITA GARVEY Facility: [facility]:[place] : 1950 Planned Disposition: Home Anticipated Discharge Date: Discharge Date: Expected LOS: Initial Reviewer: [email or web address] Initial Review Date: 01/23/2019 Generated: 01/23/19 6:44 pm DCP- Discharge Planning Updated by [email or web address]: Viry Hays on 01/23/19 4:[address] Patient Name: JUANITA GARVEY Admission Status: Elective Accout number: [id number] Admission Date: 01-22-2019 : 1950 Admission Diagnosis: Attending: LUANA MEYER Current LOS: 1 Anticipated DC Date: Planned Disposition: Home Primary Insurance: MEDICARE A & B Discharge Planning Comments: CM met with patient at bedside after explaining CM role and obtaining verbal consent. Patient lives at home alone where he is independent with his care and plans to return there upon discharge. Patient feels this would be a safe discharge. CM discussed availability / needs of home health and medical equipment. Patient stated he does have meals on wheels. Patient does have bilateral lower ext. wounds and he has not been receiving any treatment. Patient denies any discharge needs at this time. Patient may benefit from rehab and possible home health upon discharge. Patient states he will have his family drive him home upon discharge. CM will continue to follow and assist as needed with discharge planning / needs. Employment Advisor: Viry Hays DCPIA - Discharge Planning Initial Assessment Updated by [email or web address]: Viry Hays on 01/23/19 5:30 pm * Is the patient Alert and Oriented? Yes * How many steps to enter\exit or inside your home? * PCP [facility] [place] * Pharmacy [facility] * Preadmission Environment Home Alone * ADLs Independent * Other Equipment B/P CUFF, WALKER, SHOWER CHAIR, CANE * List name and contact numbers for known caregivers / representatives who currently or will assist patient after discharge: LISY - DAUGHTER- [phone] CAROLE - - [phone] * Verbal permission to speak to the caregivers and representatives has been obtained from the patient. N/A * Community resources currently utilized Meals on Wheels * Additional services required to return to the preadmission environment? No * Can the patient safely return to the preadmission environment? Yes * Has this patient been hospitalized within the prior 30 days at any hospital? No Last DP export: 01/23/19 4:38 p Patient Name: JUANITA GARVEY Page [phone] at 1747 All edits/amendments must be made on the electronic document DICTATION DATE: 01/23/191743 SENIOR GRANTS OFFICER: OLIVIER 01/23/191743 RPT#: [id number] DC DATE: STATUS: ADM IN [facility] [address] [place] [address] END OF REPORT
--- NOTE | 2019-01-23 18:17 | NUR ---
PATIENT RESTING QUIETLY, VSS.
--- NOTE | 2019-01-23 22:00 | NUR ---
NO VISITORS. PEDAL PULSES PRESENT VIA DOPPLER. PT REPOSITIONED WITH PROMINENCES BRIDGED. ORAL CARE PROVIDED. CALL LIGHT WITHIN PT REACH. CPOC.
[2019-01-24] VITALS (24 sets, daily range): BP systolic 128–168; BP diastolic 63–93
--- NOTE | 2019-01-24 01:40 | NUR ---
PT REPOSITIONED WITH PROMINENCES BRIDGED, PARTIAL LINEN CHANGE COMPLETE. CALL LIGHT WITHIN PT REACH. CPOC.
--- NOTE | 2019-01-24 03:30 | NUR ---
REASSESSMENT COMPLETE, SEE FLOWSHEET. PT REPOSITIONED FOR COMFORT, PROMINENCES BRIDGED. VSS. CPOC.
[2019-01-24 04:33] LABS: BASOPHILS 0 % (0-2); EOSINOPHILS 0.1 % (0-7); HEMATOCRIT 37.4 % (42.0-54.0); HEMOGLOBIN 12.7 g/dL (13.5-17.5); IMMATURE GRANULOCYTES 0.3 % (0-5); LYMPHOCYTES 6.6 % (15-50); MCH 29.6 pg (26.0-34.0); MCV 87.2 fL (80.0-100.0); MEAN PLATELET VOLUME 9.9 fL (7.4-10.4); MONOCYTES 5.3 % (2-11); NEUTROPHILS 87.7 % (40-80); PLATELET COUNT 178 10x3/uL (130-400); RBC 4.29 10x6/uL (4.20-6.10); RDW 16.4 % (11.5-14.5)
[2019-01-24 04:44] LABS: WBC 10.8 10x3/uL (4.8-10.8)
--- NOTE | 2019-01-24 04:53 | NUR ---
CHG BATH AND LINEN CHANGE PROVIDED. BILATERAL GROIN AND RT RADIAL AREA CLIPPED PER ORDERS.
[2019-01-24 04:56] LABS: CALC OSMOLALITY 280 mosm/kg (275-300); CALCIUM 8.1 mg/dL (8.5-10.1); CARBON DIOXIDE 28.3 mmol/L (21.0-32.0); CHLORIDE - SERUM 103 mmol/L (98-107); CHOL - HDL RATIO 5.9 ratio (2.3-4.9); CHOLESTEROL, TOTAL 183 mg/dL (0-200); CREATININE - SERUM 0.9 mg/dL (0.6-1.3); GLUCOSE 122 mg/dL (74-106); HDL CHOLESTEROL 31 mg/dL (32-96); LDL CHOLESTEROL 126 mg/dL (0-100); LDL-HDL RATIO 4.1 ratio (1.5-3.5); MAGNESIUM - SERUM 1.9 mg/dL (1.8-2.4); POTASSIUM - SERUM 3.9 mmol/L (3.5-5.1); SODIUM 139 mmol/L (136-145); TRIGLYCERIDE 132 mg/dL (30-200); UREA NITROGEN 19 mg/dL (7-18); eGFR NON AFRICAN AMERICAN 89 mL/min (90-120)
[2019-01-24 05:02] LABS: PHOSPHOROUS 2.8 mg/dL (2.5-4.9)
--- NOTE | 2019-01-24 07:00 | NUR ---
REPORT RECEIVED FROM THE OFF GOING RN. SEE ASSESSMENT IN THE PTS FLOW SHEET. PT LYING IN BED ON HIS BIPAP. RT TOOK BIPAP OFF AT 0730 AND PLACED HIM ON O2 AT 6L VIA NC. PT CONTROLLED AFIB. VSS. BLE SKIN HARD/SCALEY. MEDS ORDERED FOR SKIN. SEE MAR. CALL LIGHT IN REACH. WILL CONT POC.
--- NOTE | 2019-01-24 09:04 | NUR ---
PT REQUESTED THAT HE BE PUT BACK ON HIS BIPAP FOR SOB. IT WAS PUT BACK ON. NO S/SX OF DISTRESS/DISCOMFORT NOTED. CALL LIGHT IN REACH. WILL CONT POC.
--- NOTE | 2019-01-24 11:55 | NUR ---
PT REMAINS ON HIS BIPAP. VSS. CALL LIGHT IN REACH. WILL CONT POC.
--- NOTE | 2019-01-24 14:09 | NUR ---
PT TO UNIT CONTROL CLERK AT THIS TIME VIA BED
--- NOTE | 2019-01-24 16:17 | NUR ---
PT ARRIVED IN THE UNIT. FEMSTOP TO RIGHT GROIN. PULSE PALPABLE. VSS. WILL CONT POC.
--- NOTE | 2019-01-24 17:18 | NUR ---
VSS. GROIN SOFT TO PALPATAION. PULSE PALPABALE. WILL CONT POC.
--- NOTE | 2019-01-24 18:47 | NUR ---
GROIN REMAINS SOFT TO PALPATATION. PULSES REMAINS PALPABALE.
--- NOTE | 2019-01-24 20:24 | NUR ---
BEDSIDE REPORT AND SHIFT ASSESSMENT COMPLETE. VSS, NO SIGNS OF ACUTE DISTRESS NOTED. GROIN SOFT, NO SIGNS OF HEMATOMA. R PEDAL PULSE PALPABLE, L PEDAL PULSE DOPPLERED. PT SLEEPING, EASY TO AROUSE. DENIES NEEDS AT THIS TIME. WILL MONITOR.
--- NOTE | 2019-01-24 21:00 | NUR ---
MEDS GIVEN PER MAR. VSS, NO SIGNS OF ACUTE DISTRESS NOTED. PT SLEEPING, EASY TO AROUSE. GROIN SOFT, NO SIGNS OF BLEEDING. WILL CONTINUE TO MONITOR.
--- NOTE | 2019-01-24 23:00 | NUR ---
REASSESSMENT COMPLETE. VSS, NO SIGNS OF ACUTE DISTRESS NOTED. R GROIN SOFT, NO SIGNS OF BLEEDING. PEDAL PULSES DOPPLERED. CALL LIGHT IN REACH, WILL CONTINUE TO MONITOR.
[2019-01-25] VITALS (21 sets, daily range): BP systolic 113–156; BP diastolic 66–81
--- NOTE | 2019-01-25 01:00 | NUR ---
PT SLEEPING, EASY TO AROUSE. VSS, NO SIGNS OF ACUTE DISTRESS NOTED. R GROIN SITE, DRESSING CDI. PEDAL PULSES DOPPLERED. WILL MONITOR.
--- NOTE | 2019-01-25 03:00 | NUR ---
REASSESSMENT COMPLETE. R GROIN SOFT, NO SIGNS OF BLEEDING. PEDAL PULSES DOPPLERED. VSS, NO SIGNS OF ACUTE DISTRESS NOTED. CALL LIGHT IN REACH, WILL CONTINUE TO MONITOR.
--- NOTE | 2019-01-25 05:00 | NUR ---
CHG BATH, LINEN CHANGE, AND VELEZ CARE COMPLETE. PAIN MEDS GIVEN PER MAR. VSS, NO SIGNS OF ACUTE DISTRESS NOTED. DENIES NEEDS AT THIS TIME, WILL CONTINUE TO MONITOR.
[2019-01-25 06:17] LABS: BASOPHILS 0.1 % (0-2); EOSINOPHILS 0.2 % (0-7); HEMOGLOBIN 12.9 g/dL (13.5-17.5); IMMATURE GRANULOCYTES 0.2 % (0-5); LYMPHOCYTES 7.4 % (15-50); MCH 29.9 pg (26.0-34.0); MCHC 33.9 g/dL (31.0-37.0); MCV 88.2 fL (80.0-100.0); MEAN PLATELET VOLUME 10.1 fL (7.4-10.4); MONOCYTES 6.2 % (2-11); NEUTROPHILS 85.9 % (40-80); PLATELET COUNT 166 10x3/uL (130-400); RBC 4.31 10x6/uL (4.20-6.10); RDW 16.6 % (11.5-14.5); WBC 9.4 10x3/uL (4.8-10.8)
[2019-01-25 06:27] LABS: CALC OSMOLALITY 282 mosm/kg (275-300); CALCIUM 8.3 mg/dL (8.5-10.1); CARBON DIOXIDE 29.4 mmol/L (21.0-32.0); CHLORIDE - SERUM 103 mmol/L (98-107); CREATININE - SERUM 0.8 mg/dL (0.6-1.3); GLUCOSE 121 mg/dL (74-106); MAGNESIUM - SERUM 2.1 mg/dL (1.8-2.4); PHOSPHOROUS 2.7 mg/dL (2.5-4.9); POTASSIUM - SERUM 3.9 mmol/L (3.5-5.1); SODIUM 140 mmol/L (136-145); UREA NITROGEN 20 mg/dL (7-18); eGFR NON AFRICAN AMERICAN > 90 mL/min (90-120)
--- NOTE | 2019-01-25 07:00 | NUR ---
REPORT RECIVED FROM THE OFF GOING RN. SEE ASSESSMENT IN THE PTS FLOW SHEET. PT LYING IN BED. VSS. RIGHT GROIN DRESSING C/D/I. SOFT TO PALPATATION. RIGHT DT PULSE PALPABLE AND LEFT DOPPLERABLE. BILATEARL FEET WARM TO THE TOUCH. BLE SCALEY AND HARD TO THE TOUCH. FC NOTED WITH CLEAR, YELLOW URINE. CALL LIGHT IN REACH. WILL CONT POC.
--- NOTE | 2019-01-25 10:06 | NUR ---
SPOKE WITH DR MARINELLI ABOUT PT'S MEDICATION. N.O TO ADD ASPRIN 81MG QD, PLAVIX 75MG QD, OK TO TRANSFER TO THE FLOOR, ADD AHA DIET. POSSIBLE DC HOME TOMORROW. SPOKE WITH CASE MANAGMENT ABOUT POSSIBLE DC HOME/PLACEMENT.
--- NOTE | 2019-01-25 10:40 | NUR ---
Nutrition Follow-up: S/p heart cath yesterday. Spoke with pt's nurse about no diet order; noted plan to start AHA diet. Possible d/c tomorrow. Wt: 222# Last BM: 01/20 per chart Labs noted: Glu 121, Ca 8.3 Meds noted: Prednisone, Lasix Cardiac diet as tolerated. [place] food preferences within diet restrictions. Will monitor PO intake/tolerance. RD following.
--- NOTE | 2019-01-25 11:19 | NUR ---
REASSESSMENT COMPLETED. SEE FLOW SHEET. ENCOURAGE TCDB. VSS. WILL CONT POC.
--- NOTE | 2019-01-25 12:30 | NUR ---
LUNCH TRAY GIVEN TO THE PT. PT WANTED ME TO FEED HIM BUT I EXPLAINED THAT HE NEEDS TO BE MORE INDEPENDENT. PT HOB ELEVATED AND PT WAS SEEN FEEDING HIMSELF WITH NO ISSUES.
--- NOTE | 2019-01-25 12:52 | OP ---
PATIENT NAME: JUANITA GARVEY MEDICAL RECORD: [id number] :[birth year] LOCATION:[facility] ADMISSION DATE:01/22/19 SURGEON: ALICIA MARINELLI MD DATE OF OPERATION: 01/24/2019 PROCEDURES: Left heart catheterization, selective coronary angiography, right femoral artery approach. CATHETERS: A 5-Russian sheath and 5/4 left and right Ayla and 5/4 pig. The procedure was well tolerated. The patient was returned to the iraheta. Sheath removed. ExoSeal device placed. FINDINGS: Left ventriculography in 30-degree BOND view shows actually mild inferobasilar hypokinesis. Overall, LV function, however, preserved at 50%. CORONARY ANATOMY: LEFT MAIN: Left main is free of disease. LAD: Has severe diffuse disease from its ostium down to its midportion and has a highly calcified lesion of better than 90%. CIRCUMFLEX: Has two sequential stenosis at 80%. RIGHT CORONARY ARTERY: Totally occluded, fills via left to right collaterals. PLAN: Intervention momentarily. DESCRIPTION OF PROCEDURE: After 5-Russian sheath was exchanged for a long 6-Russian sheath, an XB LAD 4 guiding catheter provided a good guide catheter support, followed by 300 cm Whisper wire. Pre-deployment balloon used was a 2.5 x 15 mm [place] up and down the lesion and with the very distal portion of vessel we had marked wasting difficulty with this lesion including rupturing of the balloon. Next, using the balloon to exchange the catheter, we placed a 300 cm PT [place] wire. We were able to place the stents in the following fashion. 2.25 x 14, 2.5 x 18, and 3.0 x 12 all Integrity non-drug eluding stents up to 16 atmospheres for 45 seconds. Final angiography shows excellent resolution of the diffuse 90% stenosis. There is about a 20% to 30% residual at the distal stent; however, placement of a balloon or stent distal to the circ to be considered at a later date. TRANSINT:[id number] Voice Confirmation ID: [id number] DOCUMENT ID: [id number] ALICIA MARINELLI MD at 1252 CC: [id number] DICTATION DATE: 01/24/19 1547 ELECTRICAL FITTER: 01/24/19 2320 ADM IN [facility] [address] [place] [address]
--- NOTE | 2019-01-25 12:52 | EC ---
PATIENT:JUANITA GARVEY DATE OF SERVICE: 01/22/19 SEX: M MEDICAL RECORD: [id number] DATE OF : [birth year] LOCATION:[place] [address] AGE OF PATIENT: 68 ADMISSION DATE: 01/22/19 REFERRING PHYSICIAN: INTERPRETING PHYSICIAN: ALICIA MARINELLI MD ECHOCARDIOGRAM REPORT ECHO CHARGES 5 ECHO LIMITED Date: 01/23/19 CLINICAL DIAGNOSIS: SOB ECHOCARDIOGRAPHIC MEASUREMENTS (adult normal given) AC root (d.<3.7cm) cm LV Septum d (<1.2 cm> cm Valve Excursion cm LV Septum (systole) cm Left Atria (s.<4.0cm> 5.3 cm LVPW d(<1.2cm) cm RV (d.<2.3cm) 4.5 cm LVPW (sytole) cm LV diastole(<5.6CM) 5.4 cm MV E-F(>70mm/sec) cm LV systole 3.9 cm LVOT Diameter 1.9 cm MV exc.(>10mm) cm Est.ejection fraction (50-75%) % DOPPLER: LVIT cm/sec A 39.0 cm/sec E 109 cm/sec LA cm/sec RVSP 19 mmHg LVOT 112 cm/sec AOP1/2T m/s Asc. Ao 151 cm/sec RVOT cm/sec RA cm/sec PA cm/sec AV Gradient Peak 9.10 mmHg AV Mean 5.07 mmHg AV Area 1.8 cm MV Gradient Peak 11.58mmHg MV Mean 4.09 mmHg MV Area cm COMMENTS: [employer] Production Line: 2 ELISABETH QUINONEZ Personal Caregiver: 3 Dr. Lopez TAPE# PACS Pericardial Effusion N DATE OF SERVICE: 2D, color flow imaging, spectral Doppler, and M-Mode Grossly LVH appears present. LV internal dimension are normal. Wall motion is normal. EF is greater than or equal to 55%. Aortic valve is sclerosed without evidence of stenosis by Doppler interrogation. Left atrium is dilated at 5.3 cm. Mitral valve shows no prolapse. Mild MR. Right-sided chambers are grossly normal. Mild TR. ECHOCARDIOGRAM REPORT [id number] JUANITA GARVEY TRANSINT:[id number] Voice Confirmation ID: [id number] DOCUMENT ID: [id number] ALICIA MARINELLI MD at 1252 CC: [id number] DICTATION DATE: 01/24/19 1344 KITCHEN STEWARD: 01/24/19 1440 ADM IN [facility] [address] [place] [id number]
--- NOTE | 2019-01-25 14:18 | NUR ---
RT PLACED PT ON BIPAP PER DR CARTER. PT DOING WELL. VSS WILL CONT POC.
--- NOTE | 2019-01-25 17:30 | NUR ---
PT DINNER TRAY PROVIDED FOR THE PT. PT ATE ABOUT 50%. VSS. WILL CONT POC.
--- NOTE | 2019-01-25 19:00 | NUR ---
BEDSIDE REPORT AND SHIFT ASSESSMENT COMPLETE. VSS, NO SIGNS OF ACUTE DISTRESS NOTED. R FOREARM PIV WNL, NS KVO. O2 96 ON 6L HIGH FLOW NC. R GROIN SOFT, NO SIGNS OF BLEEDING. R PEDAL PULSE PALPABLE, L PEDAL PULSE DOPPLERED. CALL LIGHT IN REACH, WILL CONTINUE TO MONITOR.
--- NOTE | 2019-01-25 19:02 | MORECARE ---
CASE MANAGEMENT DISCHARGE SUMMARY PATIENT: JUANITA GARVEY UNIT: [id number] ADM DATE: 01/22/19 AGE: 68 : 50 SEX: M ROOM/BED: D.[facility] AUTHOR: MANNIE,DOC PHYSICIAN: REFERRING PHYSICIAN: LUANA POPE MD DATE OF SERVICE: 01/25/19 Discharge Plan Patient Name: JUANITA GARVEY Facility: [facility]:[place] : 1950 Planned Disposition: Home Anticipated Discharge Date: Discharge Date: Expected LOS: Initial Reviewer: [email or web address] Initial Review Date: 01/23/2019 Generated: 01/25/19 8:01 pm Comments DCP- Discharge Planning Updated by [id number]: Viry Hays on 01/25/19 5:[address] CM spoke with patient at bedside. Patient stated that he wanted everything done to save his life including chest compressions and ventilator. CM explained that he is not able to care for himself at home alone. Patient agrees to inpatient rehab for therapy. CM explained that he will have to participate in therapy before he can go to rehab. CM attempted to call Joanie patient's sister since she had left message with nursing for CM to call. CM left message for her to callback. CM will continue to follow and assist as needed with discharge planning / needs. DCP- Discharge Planning Updated by [id number]: Viry Hays on 01/23/19 4:[address] Patient Name: JUANITA GARVEY Admission Status: Elective Accout number: [id number] Admission Date: 01-22-2019 : 1950 Admission Diagnosis: Attending: LUANA MEYER Current LOS: 1 Anticipated DC Date: Planned Disposition: Home Primary Insurance: MEDICARE A & B Discharge Planning Comments: CM met with patient at bedside after explaining CM role and obtaining verbal consent. Patient lives at home alone where he is independent with his care and plans to return there upon discharge. Patient feels this would be a safe discharge. CM discussed availability / needs of home health and medical equipment. Patient stated he does have meals on wheels. Patient does have bilateral lower ext. wounds and he has not been receiving any treatment. Patient denies any discharge needs at this time. Patient may benefit from rehab and possible home health upon discharge. Patient states he will have his family drive him home upon discharge. CM will continue to follow and assist as needed with discharge planning / needs. Fish Smoker: Viry Hays DCPIA - Discharge Planning Initial Assessment Updated by [email or web address]: Viry Hays on 01/23/19 5:30 pm * Is the patient Alert and Oriented? Yes * How many steps to enter\exit or inside your home? * PCP [facility] [place] * Pharmacy [facility] * Preadmission Environment Home Alone * ADLs Independent * Other Equipment B/P CUFF, WALKER, SHOWER CHAIR, CANE * List name and contact numbers for known caregivers / representatives who currently or will assist patient after discharge: LISY - DAUGHTER- [phone] CAROLE - - [phone] * Verbal permission to speak to the caregivers and representatives has been obtained from the patient. N/A * Community resources currently utilized Meals on Wheels * Additional services required to return to the preadmission environment? No * Can the patient safely return to the preadmission environment? Yes * Has this patient been hospitalized within the prior 30 days at any hospital? No Last DP export: 01/23/19 4:45 p Patient Name: JUANITA GARVEY Page 10827 at 1902 All edits/amendments must be made on the electronic document DICTATION DATE: 01/25/191900 LICENSED CHEMICAL SPRAY TECHNICIAN: OLIVIER 01/25/191900 RPT#: [id number] GA DATE: STATUS: ADM IN [facility] [address] [place] [address] END OF REPORT
--- NOTE | 2019-01-25 21:00 | NUR ---
MEDS GIVEN PER MAR AND TOLERATED BY PT. VSS, NO SIGNS OF ACUTE DISTRESS NOTED. CALL LIGHT IN REACH, DENIES NEEDS AT THIS TIME. WILL MONITOR.
--- NOTE | 2019-01-25 23:00 | NUR ---
HR DROPPING INTO THE 50'S, PT GOING IN AND OUT OF FLUTTER AND A-FIB. OTHER VSS, NO SIGNS OF ACUTE DISTRESS NOTED. R GROIN CATH SITE SOFT, NO SIGNS OF BLEEDING. PT SLEEPING AND EASY TO AROUSE. CALL LIGHT IN REACH, WILL CONTINUE TO MONITOR.
[2019-01-26] VITALS (9 sets, daily range): BP systolic 116–147; BP diastolic 65–81
--- NOTE | 2019-01-26 01:00 | NUR ---
MEDS GIVEN PER MAR. PT SLEEPING, EASY TO AROUSE. WILL MONITOR.
--- NOTE | 2019-01-26 03:00 | NUR ---
PT TOLERATED DRINK OF WATER, ORAL CARE COMPLETE. DENIES ANY OTHER NEEDS. CALL LIGHT IN REACH, WILL CONTINUE TO MONITOR.
--- NOTE | 2019-01-26 04:45 | NUR ---
PT SLEEPING, ATTEMPTED TO WAKE PT TO GIVE HIM A BATH. PT REFUSED AND SAID HE DID NOT WANT A BATH. I EXPLAINED THAT IT WOULD MAKE HIM FEEL BETTER AND HE SAID NO.
--- NOTE | 2019-01-26 06:15 | NUR ---
CALL LIGHT ANSWERED, PT REQUESTING PAIN MEDS. C/O PAIN 11/14. MEDS GIVEN PER JUL. DENIES ANY OTHER NEEDS. WILL MONITOR.
[2019-01-26 06:22] LABS: CALC OSMOLALITY 283 mosm/kg (275-300); CARBON DIOXIDE 30.1 mmol/L (21.0-32.0); CHLORIDE - SERUM 104 mmol/L (98-107); CREATININE - SERUM 0.8 mg/dL (0.6-1.3); GLUCOSE 125 mg/dL (74-106); MAGNESIUM - SERUM 2.1 mg/dL (1.8-2.4); PHOSPHOROUS 2.8 mg/dL (2.5-4.9); POTASSIUM - SERUM 3.7 mmol/L (3.5-5.1); SODIUM 140 mmol/L (136-145); UREA NITROGEN 23 mg/dL (7-18); eGFR NON AFRICAN AMERICAN > 90 mL/min (90-120)
[2019-01-26 06:36] LABS: BASOPHILS 0.1 % (0-2); EOSINOPHILS 0.3 % (0-7); HEMATOCRIT 37.3 % (42.0-54.0); HEMOGLOBIN 12.6 g/dL (13.5-17.5); IMMATURE GRANULOCYTES 0.2 % (0-5); LYMPHOCYTES 12.1 % (15-50); MCH 29.2 pg (26.0-34.0); MCHC 33.8 g/dL (31.0-37.0); MCV 86.5 fL (80.0-100.0); MEAN PLATELET VOLUME 10.4 fL (7.4-10.4); NEUTROPHILS 79.3 % (40-80); PLATELET COUNT 174 10x3/uL (130-400); RBC 4.31 10x6/uL (4.20-6.10); RDW 16.4 % (11.5-14.5); WBC 9.6 10x3/uL (4.8-10.8)
--- NOTE | 2019-01-26 09:24 | NUR ---
0700 PT RECIEVED IN BED ALERT AND ORIENTED 6L O2 R FA PIV WITH NS KVO, HR AFIB CONTROLLED, VELEZ DRAINING YELLOW URINE 0800 REFUSED BREAKFAST 0900 REPOSITIONED TO L SIDE 0920REPOSITIONED TO R SIDE, PT AND FAMILY IN ROOM AND DISCUSSED IMPORTANCE OF REPOSITIONING IN BED TO PREVENT BED SORES AND IMPROVE BREATHING
--- NOTE | 2019-01-26 12:00 | NUR ---
ate 75% lunch, repositioned [id number], family here for visitation
--- NOTE | 2019-01-26 13:59 | NUR ---
HR NOTED TO DROP TO 44 CONTINUES IN AFIB, DR REAGAN JAIL MANAGER FOR CARDIOLOGY AND PAGED, AWAITING PAGE BACK
--- NOTE | 2019-01-26 14:04 | NUR ---
RECIEVED ORDERS TO DROP BETAPACE TO 40MG
--- NOTE | 2019-01-26 18:07 | NUR ---
1500 seen by physical therapy 1700 REPOSITIONED FOR DINNER, ATE75%
--- NOTE | 2019-01-26 19:00 | NUR ---
PT ASSESSMENT COMPLETED AT THIS TIME, NO CHANGES FORM NURSE REPORT, VSS, WILL CONT. TO MONITOR FOR CHANGES
--- NOTE | 2019-01-26 21:00 | NUR ---
PT TOOK PO MEDS WITH DIFFICULTY, VSS AT THIS TIME, WILL MONITOR FOR CHANGES
--- NOTE | 2019-01-26 23:00 | NUR ---
PT REASSESSMENT COMPLETED AT THIS TIME, NO CHANGES FROM PREVIOUS, VSS STABLE AT THIS TIME, WILL CONT. TO MONITOR FOR CHANGES
[2019-01-27] VITALS (16 sets, daily range): BP systolic 121–152; BP diastolic 62–88
--- NOTE | 2019-01-27 01:00 | NUR ---
NO CHANGES NOTED IN PATIENT COND. RESP EVEN, VSS. WILL CONT TO MONITOR FOR CHANGES
--- NOTE | 2019-01-27 03:00 | NUR ---
NO CHANGES NOTED IN PATIENT COND. VSS, WILL CONT. TO MONITOR FOR CHANGES
--- NOTE | 2019-01-27 05:00 | NUR ---
NO CHANGES IN PATIENTS STATUS, VSS, WILL CONT. MONITOR FOR CHANGES
[2019-01-27 06:12] LABS: CALC OSMOLALITY 284 mosm/kg (275-300); CALCIUM 8.3 mg/dL (8.5-10.1); CARBON DIOXIDE 30.5 mmol/L (21.0-32.0); CHLORIDE - SERUM 104 mmol/L (98-107); CREATININE - SERUM 0.8 mg/dL (0.6-1.3); GLUCOSE 118 mg/dL (74-106); POTASSIUM - SERUM 3.7 mmol/L (3.5-5.1); SODIUM 140 mmol/L (136-145); UREA NITROGEN 27 mg/dL (7-18); eGFR NON AFRICAN AMERICAN > 90 mL/min (90-120)
--- NOTE | 2019-01-27 06:20 | NUR ---
PT GIVEN HCG BATH AND COMPLETE LINEN CHANGE, PT C/O PAIN ON MOVEMENT, VSS, WILL MONITOR FOR CHANGES
[2019-01-27 06:44] LABS: BASOPHILS 0 % (0-2); EOSINOPHILS 0.9 % (0-7); HEMATOCRIT 37.4 % (42.0-54.0); HEMOGLOBIN 12.9 g/dL (13.5-17.5); IMMATURE GRANULOCYTES 0.2 % (0-5); LYMPHOCYTES 17.6 % (15-50); MCH 29.8 pg (26.0-34.0); MCHC 34.5 g/dL (31.0-37.0); MCV 86.4 fL (80.0-100.0); MEAN PLATELET VOLUME 10.4 fL (7.4-10.4); MONOCYTES 8.2 % (2-11); NEUTROPHILS 73.1 % (40-80); PLATELET COUNT 178 10x3/uL (130-400); RBC 4.33 10x6/uL (4.20-6.10); RDW 16.2 % (11.5-14.5); WBC 9.3 10x3/uL (4.8-10.8)
--- NOTE | 2019-01-27 07:00 | NUR ---
AWAKES EASILY TO VERBALSTIMULI SKIN WARM AND DRY. TILTING HEAD TOWARD RIGHT. DENIES PAIN AT THIS TIME. DOES MOAN WHEN REPOSITIONED IN BED. IV RIGHT FOREARM WITHOUT REDNESS OR SWELLING INFUSING WITH NS AT KVO. VELEZ CATH PATENT DRAINING RON CLEAR URINE. MONITOR ATRIAL FIB CONTROLLED RATE.
--- NOTE | 2019-01-27 08:13 | NUR ---
REPOSITIONEDIN BED. BREAKFAST SET UP FOR PATIENT. LOWER LEGS BROWN AND WRINKLED. PITTING EDEMA NOTED. NO DISTRESS
--- NOTE | 2019-01-27 09:00 | NUR ---
UP IN CHAIR AT BEDSIDE PER PHYSICAL THERPY, TOTAL LIFT . TOLERATED FAIR
--- NOTE | 2019-01-27 11:00 | NUR ---
RETURN TO BED PER PHYSICAL THERAPY TOLERATED FAIR.
--- NOTE | 2019-01-27 12:00 | NUR ---
DR. CARTER HERE. LUNCH SERVED AND SET UP.
--- NOTE | 2019-01-27 13:00 | NUR ---
WATCHING TV. ATE FAIR AT LUNCH. WARM BLANKET FOR COMFORT. NO DISTRESS
--- NOTE | 2019-01-27 15:00 | NUR ---
WATCHING TV NO DISTRESS. IV PATENT WITHOUT REDNESS OR SWELLING. VELEZ CATH PATENT. MONITOR ATRIAL FIB. HEELS BRIDGED ON PILLOW. OXYGEN AT 5 LITERS PER OXYMZER
--- NOTE | 2019-01-27 16:57 | NUR ---
DINNER TRAY SERVED AND SET UP . PULLED UP IN BED. NOT MOANING OUT LOUD ANYMORE. NO DISTRESS. WATCHING TV
--- NOTE | 2019-01-27 19:05 | NUR ---
SHIFT ASSESSMENT COMPLETE. V/S: TEMP 99.2 ORAL, HR 68, BP 134/83, O2 SAT 89%, INCREASED HIGH FLOW NC TO 6 L/MIN, O2 SAT IS NOW RANGING BETWEEN 90-92%. ENCOURAGED DEEP BREATHS IN THROUGH HIS NOSE, RR UNLABORED 16 BPM. S1S2 AUDIBLE, A-FIB SHOWING ON MONITOR. COARSE LUNG SOUNDS HEARD BILAT THROUGHOUT ALL LOBES. ABD ROUND AND SOFT, BS ACTIVE X4. PT STATES THAT HE HAS TOLERABLE PAIN WITH HIS BROKEN RIBS, /10. REPOSITIONED FOR COMFORT. R FA PIV INFUSING NS @ 5 ML/HR. VELEZ CATH INTACT DRAINING RON URINE. B/L LOWER EXT HAS THICK, BROWN, SCALY SKIN FROM HIS LOWER HALEY TO BOTH FEET. +2 PITTING EDEMA, ELEVATED ON PILLOW. RADIAL PULSES PALP. PEDAL PULSES WEAK. HE IS ABLE TO MOVE BOTH LEGS ON HIS OWN. HE DENIES ANY FURTHER NEEDS AT THIS TIME. CALL LIGHT IN REACH, BED IN LOWEST POSITION. WILL CONT WITH POC.
--- NOTE | 2019-01-27 21:05 | NUR ---
PO MEDS TAKEN WITHOUT DIFFICULTY. IS X10, MET GOAL OF 1000 ML, STRONG EFFORT. REPOSITIONED FOR COMFORT. CALL LIGHT IN REACH, BED IN LOWEST POSITION. WILL CONT WITH POC.
--- NOTE | 2019-01-27 23:05 | NUR ---
REASSESSMENT COMPLETE. NO CHANGES FROM PREVIOUS ASSESSMENT. REPOSITIONED FOR COMFORT. REFRESHMENTS AT BEDSIDE. BIPAP ON VIA RT. WILL CONT WITH POC. CALL LIGHT IN REACH.
--- NOTE | 2019-01-27 23:05 | NUR ---
REASSESSMENT COMPLETE. PT IS SHOWING A-FLUTTER ON MONITOR, HR BETWEEN 55-67 BPM. RT AT BEDSIDE PUTTING ON BIPAP. REPOSITIONED FOR COMFORT. VSS. CALL LIGHT IN REACH. SEE FLOWSHEET FOR FURTHER DETAILS.
[2019-01-28] VITALS (13 sets, daily range): BP systolic 121–174; BP diastolic 57–95
--- NOTE | 2019-01-28 01:04 | NUR ---
PT STATES THAT HIS RIBS ARE HURTING (11/14) AND ASKED FOR PAIN PILL. PRN HYDROCODONE ADMIN PER REQUEST. REPOSITIONED FOR COMFORT. NO FURTHER NEEDS AT THIS TIME. CALL LIGHT IN REACH, WILL CONT WITH POC.
--- NOTE | 2019-01-28 03:00 | NUR ---
REASSESSMENT COMPLETE. NO CHANGES IN PT CONDITION. VSS. CALL LIGHT IN REACH, BED IN LOWEST POSITION. WILL CONT WITH POC.
--- NOTE | 2019-01-28 05:00 | NUR ---
CHG AND COMPLETE LINEN CHANGE PROVIDED. VELEZ CARE PROVIDED. PT TOLERATED WELL. VSS. WILL CONT WITH POC.
[2019-01-28 05:03] LABS: BASOPHILS 0 % (0-2); EOSINOPHILS 0.9 % (0-7); HEMATOCRIT 36.8 % (42.0-54.0); HEMOGLOBIN 12.7 g/dL (13.5-17.5); IMMATURE GRANULOCYTES 0.4 % (0-5); MCHC 34.5 g/dL (31.0-37.0); MEAN PLATELET VOLUME 9.9 fL (7.4-10.4); NEUTROPHILS 72.7 % (40-80); PLATELET COUNT 195 10x3/uL (130-400); RBC 4.23 10x6/uL (4.20-6.10); RDW 16.4 % (11.5-14.5); WBC 9.5 10x3/uL (4.8-10.8)
[2019-01-28 05:20] LABS: CALC OSMOLALITY 283 mosm/kg (275-300); CALCIUM 8.3 mg/dL (8.5-10.1); CARBON DIOXIDE 32.9 mmol/L (21.0-32.0); CHLORIDE - SERUM 101 mmol/L (98-107); CREATININE - SERUM 0.8 mg/dL (0.6-1.3); GLUCOSE 112 mg/dL (74-106); PHOSPHOROUS 2.6 mg/dL (2.5-4.9); POTASSIUM - SERUM 3.4 mmol/L (3.5-5.1); SODIUM 140 mmol/L (136-145); UREA NITROGEN 24 mg/dL (7-18); eGFR NON AFRICAN AMERICAN > 90 mL/min (90-120)
--- NOTE | 2019-01-28 07:00 | NUR ---
REPORT RECEVIED FROM THE OFF GOING RN. SEE ASSESSMENT IN THE PTS FLOW SHEET. PT IN AFIB RATE 70-90'S. PT DENIES PAIN. PT REPOSISTIONED AND MEAL TRAY PROVIDED FOR THE PT. CALL LIGHT IN REACH. WILL CONT POC.
--- NOTE | 2019-01-28 09:30 | NUR ---
AM MEDS GIVEN WITH NO ISSUES. PT INSTRUCTED TO USE HIS IS 10X'S/H. PULLS ABOUT 750 ON HIS IS.
--- NOTE | 2019-01-28 10:38 | NUR ---
PHYSICAL THEARPY ASSISTED THE PT OOB AND INTO HIS BEDSIDE CHAIR. PT TOLERATED WELL. PT DID HOWEVER REQUEST A PAIN PILL AFTER WARDS. IT WAS GIVEN. SEE MAR.
--- NOTE | 2019-01-28 11:02 | NUR ---
Nutrition Follow-up: Pt reports fair appetite/PO intake. Agreed to try Ensure. Diet: Cardiac PO intake: 0-50% Wt: 217# No BMs recorded Labs reviewed Meds reviewed Continue current diet as tolerated. Will trial Ensure. [place] food preferences within diet restrictions. RD following.
--- NOTE | 2019-01-28 11:56 | NUR ---
LUNCH TRAY PROVIDED FOR THE PT. PT REQUIRES NO ASSISTANCE. VSS. WILL CONT POC.
--- NOTE | 2019-01-28 12:35 | NUR ---
Rehab Prescreening Consult recieved and the chart has been reviewed. He is an excellent rehab candidate when he is medically stable. Currently he is on 5 liters of 02 and has not ambulated. He will be accepted when he is able to participate in the 3 hrs of therapy. Bambi Cantu RN Clinical Liaison, Rehab
--- NOTE | 2019-01-28 14:59 | NUR ---
REPORT CALLED AND GIVEN TO SILVER CABELLO ON MED 2. PT BELONGINGS ACCOUNTED FOR. PT LEFT IN A STABLE CONDITION.
--- NOTE | 2019-01-28 15:13 | NUR ---
TRANSFER FROM CVICU BY BED. OREINTED TO ROOM. CALL LIGHT IN REACH. WILL CONT. PLAN OF CARE.
--- NOTE | 2019-01-28 20:05 | NUR ---
PATIENT IS AAO WATCHING TV. BP 147/57, PULSE OX 91. PATIENT COMPLAINS OF SOB AND RIBS HURTING. RAISED HEAD OF BED. PATIENT IS ON 5L HIGH FLOW 02. TAUGHT PATIENT HOW TO USE INCENTIVE SPIROMETER. VELEZ IS PATENT AND IN PLACE EMPTIED 400 MLS. IV IN RIGHT FOREARM IS PATENT RUNNING NS @KVO. BED IN LOWEST POSITION CALL LIGHT IN REACH. WILL CONTINUE TO FOLLOW PLAN OF CARE AND CONTINUE TO MONITOR.
--- NOTE | 2019-01-28 21:28 | NUR ---
PLACED SCD ON PATIENT LEGS. PATIENT IS RESTING IN BED. BED IS IN THE LOWEST POSITION AND CALL LIGHT WITH IN REACHED.
--- NOTE | 2019-01-28 23:07 | NUR ---
RESPIRATORY AT BEDSIDE PLACED PATIENT ON BIPAP AT 40 PERCENT AIR.
[2019-01-29] VITALS: BP 138/58
--- NOTE | 2019-01-29 00:40 | NUR ---
RESPIRATORY AT BEDSIDE TO ADJUST MASK ON PATIENTS BIPAP. BIPAP 40 PERCENT AIR. 02 SAT IS 92%. PATIENT BED IS IN THE LOWEST POSITION AND CALL
--- NOTE | 2019-01-29 02:02 | NUR ---
PATIENT RESTING IN BED. WEARING BIPAP 40 PERCENT AIR. RESPIRATION 17. TELEMETRY READS 54 CONTROL AFIB. BED IN LOWEST POSITION CALL LIGHT WITH IN REACH.
[2019-01-29 04:00] VITALS: BP 151/83
--- NOTE | 2019-01-29 04:19 | NUR ---
PATIENT AWAKE. WEARING BIPAP 40 PERCENT AIR. O2 SAT 92 PERCENT. PATIENT WEARING SCD. EMPTY VELEZ 500 MLS. URINE DARK YELLOW. BED IN LOWEST POSITION AND CALL LIGHT WITH IN REACH.
[2019-01-29 04:46] LABS: BASOPHILS 0.1 % (0-2); EOSINOPHILS 0.8 % (0-7); HEMATOCRIT 37.1 % (42.0-54.0); HEMOGLOBIN 12.9 g/dL (13.5-17.5); IMMATURE GRANULOCYTES 0.5 % (0-5); LYMPHOCYTES 19.1 % (15-50); MCHC 34.8 g/dL (31.0-37.0); MCV 86.3 fL (80.0-100.0); MEAN PLATELET VOLUME 10.3 fL (7.4-10.4); MONOCYTES 8.2 % (2-11); NEUTROPHILS 71.3 % (40-80); PLATELET COUNT 185 10x3/uL (130-400); RDW 16.4 % (11.5-14.5); WBC 8.9 10x3/uL (4.8-10.8)
--- NOTE | 2019-01-29 04:54 | NUR ---
I have reviewed this patient and I concur with the Shift Assessment completed by the Licensed Practical Nurse today this shift.
[2019-01-29 05:06] LABS: CALC OSMOLALITY 282 mosm/kg (275-300); CALCIUM 8.2 mg/dL (8.5-10.1); CARBON DIOXIDE 32.4 mmol/L (21.0-32.0); CHLORIDE - SERUM 102 mmol/L (98-107); CREATININE - SERUM 0.9 mg/dL (0.6-1.3); GLUCOSE 119 mg/dL (74-106); POTASSIUM - SERUM 3.4 mmol/L (3.5-5.1); SODIUM 139 mmol/L (136-145); UREA NITROGEN 23 mg/dL (7-18); eGFR NON AFRICAN AMERICAN 89 mL/min (90-120)
--- NOTE | 2019-01-29 05:42 | NUR ---
PATIENT AAO. PATIENT REMOVED HIS BIPAP MASK AND WANTED TO PUT ON THE NASAL CANULA. NASAL CANULA IS RUNNING AT 5L. PATIENT O2 SAT IS CURRENTLY 92 PERCENT. PATIENT C/O PAIN IN HIS RIBS. PATIENT RATES PAIN AT AN 8 OF 10. GAVE PATIENT ONE NORCO-5 TAB FOR PAIN. BED IN THE LOWEST POSITION AND CALL LIGHT WITH IN REACH. WILL CONTINUE TO MONITOR.
--- NOTE | 2019-01-29 08:04 | NUR ---
ASSESSMENT DONE. DENIES NEEDS
--- NOTE | 2019-01-29 08:13 | MORECARE ---
CASE MANAGEMENT DISCHARGE SUMMARY PATIENT: JUANITA GARVEY UNIT: [id number] ADM DATE: 01/22/19 AGE: 68 : 50 SEX: M ROOM/BED: D.2121 AUTHOR: ALLAN CHAND PHYSICIAN: REFERRING PHYSICIAN: LUANA POPE MD DATE OF SERVICE: 01/29/19 Discharge Plan Patient Name: JUANITA GARVEY Facility: [facility]:[place] : 1950 Planned Disposition: Inpatient Rehab Anticipated Discharge Date: Discharge Date: Expected LOS: Initial Reviewer: [email or web address] Initial Review Date: 01/23/2019 Generated: 01/29/19 9:13 am DCP- Discharge Planning Updated by [email or web address]: Viry Hays on 01/25/19 6:[address] CM spoke with patient at bedside. Patient stated that he wanted everything done to save his life including chest compressions and ventilator. CM explained that he is not able to care for himself at home alone. Patient agrees to inpatient rehab for therapy. CM explained that he will have to participate in therapy before he can go to rehab. CM attempted to call Joanie patient's sister since she had left message with nursing for CM to call. CM left message for her to callback. CM will continue to follow and assist as needed with discharge planning / needs. Appended by Viry Hays on 01/25/2019 19:01 CDT: Patient is currently on 8-6L 02 and on BiPap. Patient will need to weaned down on 02 prior to discharge . DCP- Discharge Planning Updated by [email or web address]: Viry Hays on 01/23/19 4:[address] Patient Name: JUANITA GARVEY Admission Status: Elective Accout number: [id number] Admission Date: 01-22-2019 : 1950 Admission Diagnosis: Attending: LUANA MEYER Current LOS: 1 Anticipated DC Date: Planned Disposition: Home Primary Insurance: MEDICARE A & B Discharge Planning Comments: CM met with patient at bedside after explaining CM role and obtaining verbal consent. Patient lives at home alone where he is independent with his care and plans to return there upon discharge. Patient feels this would be a safe discharge. CM discussed availability / needs of home health and medical equipment. Patient stated he does have meals on wheels. Patient does have bilateral lower ext. wounds and he has not been receiving any treatment. Patient denies any discharge needs at this time. Patient may benefit from rehab and possible home health upon discharge. Patient states he will have his family drive him home upon discharge. CM will continue to follow and assist as needed with discharge planning / needs. Account Auditor: Viry Hays DCPIA - Discharge Planning Initial Assessment Updated by [email or web address]: Viry Hays on 01/23/19 5:30 pm * Is the patient Alert and Oriented? Yes * How many steps to enter\exit or inside your home? * PCP [facility] [place] * Pharmacy [facility] * Preadmission Environment Home Alone * ADLs Independent * Other Equipment B/P CUFF, WALKER, SHOWER CHAIR, CANE * List name and contact numbers for known caregivers / representatives who currently or will assist patient after discharge: LISY - DAUGHTER- [phone] CAROLE - - [phone] * Verbal permission to speak to the caregivers and representatives has been obtained from the patient. N/A * Community resources currently utilized Meals on Wheels * Additional services required to return to the preadmission environment? No * Can the patient safely return to the preadmission environment? Yes * Has this patient been hospitalized within the prior 30 days at any hospital? No Last DP export: 01/25/19 6:02 p Patient Name: JUANITA GARVEY Page 34715 at 0813 All edits/amendments must be made on the electronic document DICTATION DATE: 01/29/19812 ROLLING DOWN MACHINE OPERATOR: OLIVIER 01/29/19812 RPT#: [id number] DC DATE: STATUS: ADM IN [facility] [address] [place] [address] END OF REPORT
[2019-01-29 08:29] VITALS: BP 140/77
--- NOTE | 2019-01-29 10:22 | NUR ---
I have reviewed this patient and I concur with the Shift Assessment completed by the Licensed Practical Nurse today this shift.
[2019-01-29 11:24] VITALS: BP 147/74
--- NOTE | 2019-01-29 11:41 | MORECARE ---
CASE MANAGEMENT DISCHARGE SUMMARY PATIENT: JUANITA GARVEY UNIT: [id number] ADM DATE: 01/22/19 AGE: 68 : 50 SEX: M ROOM/BED: D.2121 AUTHOR: MANNIE,DOC PHYSICIAN: REFERRING PHYSICIAN: LUANA POPE MD DATE OF SERVICE: 01/29/19 Discharge Plan Patient Name: JUANITA GARVEY [facility] [facility] 1950 Planned Disposition: Inpatient Rehab Anticipated Discharge Date: 01/29/19 Discharge Date: Expected LOS: 7 Initial Reviewer: [email or web address] Initial Review Date: 01/23/2019 Generated: 01/29/19 12:41 pm Comments DCP- Discharge Planning Updated by [email or web address]: Dougie Rodriguez on 01/29/19 10:[address] Patient Name: JUANITA GARVEY Encounter No: [id number] : 1950 Primary Insurance: MEDICARE A & B Anticipated DC Date: 01-29-2019 Planned Disposition: Inpatient Rehab External Planned Provider: [facility] DCP follow-up note: DURING MULTIDISCIPLINARY TEAM MEETING, [facility], THEY PLAN TO ACCEPT PT TODAY FOR REHAB IF STABLE, [facility] REPORTS PT TO BE STABLE. PT NOTIFIED, IN AGREEMENT WITH DISCHARGE TO INPATIENT REHAB, PT STATES HE HOPES TO BE ABLE TO RETURN HOME ALONE AFTER REHAB. IMPORTANT MESSAGE FROM MEDICARE PROVIDED AND EXPLAINED. [facility] TO CONTACT MED 2 NURSE WITH ROOM NUMBER WHEN READY TO ACCEPT PT AND NURSE REPORT. MARIETTA Diane DCP- Discharge Planning Updated by [id number]: Viry Hays on 01/25/19 6:[address] CM spoke with patient at bedside. Patient stated that he wanted everything done to save his life including chest compressions and ventilator. CM explained that he is not able to care for himself at home alone. Patient agrees to inpatient rehab for therapy. CM explained that he will have to participate in therapy before he can go to rehab. CM attempted to call Joanie patient's sister since she had left message with nursing for CM to call. CM left message for her to callback. CM will continue to follow and assist as needed with discharge planning / needs. Appended by Viry Hays on 01/25/2019 19:01 CDT: Patient is currently on 8-6L 02 and on BiPap. Patient will need to weaned down on 02 prior to discharge . DCP- Discharge Planning Updated by [email or web address]: Viry Hays on 01/23/19 4:[address] Patient Name: JUANITA GARVEY Admission Status: Elective Accout number: [id number] Admission Date: 01-22-2019 : 1950 Admission Diagnosis: Attending: LUANA MEYER Current LOS: 1 Anticipated DC Date: Planned Disposition: Home Primary Insurance: MEDICARE A & B Discharge Planning Comments: CM met with patient at bedside after explaining CM role and obtaining verbal consent. Patient lives at home alone where he is independent with his care and plans to return there upon discharge. Patient feels this would be a safe discharge. CM discussed availability / needs of home health and medical equipment. Patient stated he does have meals on wheels. Patient does have bilateral lower ext. wounds and he has not been receiving any treatment. Patient denies any discharge needs at this time. Patient may benefit from rehab and possible home health upon discharge. Patient states he will have his family drive him home upon discharge. CM will continue to follow and assist as needed with discharge planning / needs. Watch Crystal Molder: Viry Hays DCPIA - Discharge Planning Initial Assessment Updated by [email or web address]: Viry Hays on 01/23/19 5:30 pm * Is the patient Alert and Oriented? Yes * How many steps to enter\exit or inside your home? * PCP [facility] * Pharmacy [facility] * Preadmission Environment Home Alone * ADLs Independent * Other Equipment B/P CUFF, WALKER, SHOWER CHAIR, CANE * List name and contact numbers for known caregivers / representatives who currently or will assist patient after discharge: LISY - DAUGHTER- [phone] CAROLE - - [phone] * Verbal permission to speak to the caregivers and representatives has been obtained from the patient. N/A * Community resources currently utilized Meals on Wheels * Additional services required to return to the preadmission environment? No * Can the patient safely return to the preadmission environment? Yes * Has this patient been hospitalized within the prior 30 days at any hospital? No Coverage Notice Reviewer: [email or web address] Rhonda Rodriguez Notice Issued Date-Time: 01/29/2019 8:55 Notice Type: IM Discharge Notice Notice Delivered To: Patient Relationship to Patient: Fence Setter Name: Delivery Method: HAND - Hand Delivered Maria Elena Days: Prior Verbal Notification: Recipient Understood Notice: Yes Recipient Signature: Yes Med Rec Note Co-signed by Attending: Coverage Notice Comment: Last DP export: 01/29/19 7:13 a Patient Name: JUANITA GARVEY Page [phone] at 1141 All edits/amendments must be made on the electronic document DICTATION DATE: 01/29/19 1141 PRIVATE INVESTIGATOR SURVEILLANCE: OLIVIER 01/29/19 1141 RPT#: [id number] DC DATE: STATUS: ADM IN [facility] [address] [place] [address] END OF REPORT
--- NOTE | 2019-01-29 15:05 | MORECARE ---
CASE MANAGEMENT DISCHARGE SUMMARY PATIENT: JUANITA GARVEY UNIT: [id number] ADM DATE: 01/22/19 AGE: 68 : 50 SEX: M ROOM/BED: D.2121 AUTHOR: MANNIE,DOC PHYSICIAN: REFERRING PHYSICIAN: LUANA POPE MD DATE OF SERVICE: 01/29/19 Discharge Plan Patient Name: JUANITA GARVEY [facility] [facility] 1950 Planned Disposition: Inpatient Rehab Anticipated Discharge Date: 01/30/19 Discharge Date: Expected LOS: 8 Initial Reviewer: [email or web address] Initial Review Date: 01/23/2019 Generated: 01/29/19 4:05 pm Comments DCP- Discharge Planning Updated by [email or web address]: Dougie Rodriguez on 01/29/19 10:[address] Patient Name: JUANITA GARVEY Encounter No: [id number] : 1950 Primary Insurance: MEDICARE A & B Anticipated DC Date: 01-29-2019 Planned Disposition: Inpatient Rehab External Planned Provider: [facility] DCP follow-up note: DURING MULTIDISCIPLINARY TEAM MEETING, [facility], THEY PLAN TO ACCEPT PT TODAY FOR REHAB IF STABLE, [facility] REPORTS PT TO BE STABLE. PT NOTIFIED, IN AGREEMENT WITH DISCHARGE TO INPATIENT REHAB, PT STATES HE HOPES TO BE ABLE TO RETURN HOME ALONE AFTER REHAB. IMPORTANT MESSAGE FROM MEDICARE PROVIDED AND EXPLAINED. [facility] TO CONTACT MED 2 NURSE WITH ROOM NUMBER WHEN READY TO ACCEPT PT AND NURSE REPORT. MARIETTA Diane DCP- Discharge Planning Updated by [email or web address]: Viry Hays on 01/25/19 6:[address] CM spoke with patient at bedside. Patient stated that he wanted everything done to save his life including chest compressions and ventilator. CM explained that he is not able to care for himself at home alone. Patient agrees to inpatient rehab for therapy. CM explained that he will have to participate in therapy before he can go to rehab. CM attempted to call Joanie patient's sister since she had left message with nursing for CM to call. CM left message for her to callback. CM will continue to follow and assist as needed with discharge planning / needs. Appended by Viry Hays on 01/25/2019 19:01 CDT: Patient is currently on 8-6L 02 and on BiPap. Patient will need to weaned down on 02 prior to discharge . DCP- Discharge Planning Updated by [email or web address]: Viry Hays on 01/23/19 4:[address] Patient Name: JUANITA GARVEY Admission Status: Elective Accout number: [id number] Admission Date: 01-22-2019 : 1950 Admission Diagnosis: Attending: LUANA MEYER Current LOS: 1 Anticipated DC Date: Planned Disposition: Home Primary Insurance: MEDICARE A & B Discharge Planning Comments: CM met with patient at bedside after explaining CM role and obtaining verbal consent. Patient lives at home alone where he is independent with his care and plans to return there upon discharge. Patient feels this would be a safe discharge. CM discussed availability / needs of home health and medical equipment. Patient stated he does have meals on wheels. Patient does have bilateral lower ext. wounds and he has not been receiving any treatment. Patient denies any discharge needs at this time. Patient may benefit from rehab and possible home health upon discharge. Patient states he will have his family drive him home upon discharge. CM will continue to follow and assist as needed with discharge planning / needs. Window And Door Installer: Viry Hays DCPIA - Discharge Planning Initial Assessment Updated by [email or web address]: Viry Hays on 01/23/19 5:30 pm * Is the patient Alert and Oriented? Yes * How many steps to enter\exit or inside your home? * PCP [facility] * Pharmacy [facility] * Preadmission Environment Home Alone * ADLs Independent * Other Equipment B/P CUFF, WALKER, SHOWER CHAIR, CANE * List name and contact numbers for known caregivers / representatives who currently or will assist patient after discharge: LISY - DAUGHTER- [phone] CAROLE - - [phone] * Verbal permission to speak to the caregivers and representatives has been obtained from the patient. N/A * Community resources currently utilized Meals on Wheels * Additional services required to return to the preadmission environment? No * Can the patient safely return to the preadmission environment? Yes * Has this patient been hospitalized within the prior 30 days at any hospital? No Coverage Notice Reviewer: [email or web address] Rhonda Rodriguez Notice Issued Date-Time: 01/29/2019 8:55 Notice Type: IM Discharge Notice Notice Delivered To: Patient Relationship to Patient: Traffic Chief Name: Delivery Method: HAND - Hand Delivered Maria Elena Days: Prior Verbal Notification: Recipient Understood Notice: Yes Recipient Signature: Yes Med Rec Note Co-signed by Attending: Coverage Notice Comment: Last DP export: 01/29/19 10:41 a Patient Name: JUANITA GARVEY Page [phone] at 1505 All edits/amendments must be made on the electronic document DICTATION DATE: 01/29/19 1504 DISTANCE LEARNING TECHNICIAN: OLIVIER 01/29/19 1504 RPT#: [id number] DC DATE: STATUS: ADM IN [facility] [address] [place] [address] END OF REPORT
[2019-01-29 15:50] VITALS: BP 142/74
--- NOTE | 2019-01-29 17:41 | NUR ---
WITHOUT CHANGES OR DISTRESS NOTED AT THIS TIME. DENIES NEEDS
--- NOTE | 2019-01-29 19:11 | NUR ---
RECIEVED UP IN BED WITH EYES OPEN AND TV ON. ALERT AND ORIENTED X4. O2@ 5 LITERS PER HF CANNULA. RESP EVEN AND UNLABORED. IV TO RIGHT FA SL.. SCD'D IN PLACE AND SKIN INTACT UNDER LEGGINGS. DENIES ANY NEEDES AT THIS TIME.
[2019-01-29 20:15] VITALS: BP 146/74
[2019-01-30 00:02] VITALS: BP 154/66
--- NOTE | 2019-01-30 00:25 | NUR ---
PT IS NOW INSISTING HE WILL NOT WEAR BIPAP. ASKED PT TO SPEAK WITH PASTEURISER OPERATOR REGARDING WHY HE DOES NOT WANT TO WEAR IT WE HAVE TO PUT HIM ON IT LONG IT IS ORDERED.
[2019-01-30 04:00] VITALS: BP 160/81
[2019-01-30 06:29] LABS: CALC OSMOLALITY 281 mosm/kg (275-300); CALCIUM 8.5 mg/dL (8.5-10.1); CARBON DIOXIDE 30.5 mmol/L (21.0-32.0); CHLORIDE - SERUM 102 mmol/L (98-107); CREATININE - SERUM 0.8 mg/dL (0.6-1.3); GLUCOSE 109 mg/dL (74-106); POTASSIUM - SERUM 3.8 mmol/L (3.5-5.1); SODIUM 139 mmol/L (136-145); UREA NITROGEN 21 mg/dL (7-18); eGFR NON AFRICAN AMERICAN > 90 mL/min (90-120)
[2019-01-30 07:33] LABS: HEMATOCRIT 38.8 % (42.0-54.0); HEMOGLOBIN 13.2 g/dL (13.5-17.5); MCH 29.5 pg (26.0-34.0); MCV 86.6 fL (80.0-100.0); MEAN PLATELET VOLUME 10.5 fL (7.4-10.4); PLATELET COUNT 208 10x3/uL (130-400); RBC 4.48 10x6/uL (4.20-6.10); RDW 16.6 % (11.5-14.5)
[2019-01-30 08:45] VITALS: BP 132/59
--- NOTE | 2019-01-30 10:51 | NUR ---
UP TO CHAIR WITH PT ASSIST.
--- NOTE | 2019-01-30 10:52 | NUR ---
ASSISTED UP TO CHAIR WITH PT ASSIST. WILL CONT. PLAN OF CARE.
[2019-01-30 11:05] LABS: ANISOCYTOSIS OCC; EOSINOPHILS 1 % (0-7); LYMPHOCYTES 20 % (15-50); MONOCYTES 6 % (2-11); NEUTROPHILS 71 % (40-80); PLATELET ESTIMATE NORMAL
[2019-01-30 20:00] VITALS: BP 128/70
--- NOTE | 2019-01-30 20:10 | NUR ---
SUPERVISOR INSPECTING AT BED SIDE TO OBTAIN VITALS, PTS BP STABLE, O2 SATS 83-85% ON O2 AT 9 LITERS VIA HIGH FLOW CANULA. REPOSITIONED PT IN BED, ENCOURAGED PT TO COUGH. PT WOULDNT COUGH AT THIS TIME, STATED THAT HIS RIBS HURT TOO BAD. PLACED PT ON BI-PAP AND CALLED RT.
--- NOTE | 2019-01-30 20:15 | NUR ---
RT AT BED SIDE, O2 SATS STILL 86%, RT INCREASED O2 FROM 40% TO 50%, WILL RECHECK O2 SAT SHORTLY.
--- NOTE | 2019-01-30 20:23 | NUR ---
SPO2 92% ON BIPAP AT 50.
[2019-01-31] VITALS: BP 135/80
--- NOTE | 2019-01-31 01:41 | NUR ---
I have reviewed this patient and I concur with the Shift Assessment completed by the Licensed Practical Nurse today this shift.
--- NOTE | 2019-01-31 03:03 | NUR ---
RESTING WITH EYES CLOSED, RESPERATIONS EVEN, NO S/S DISTRESS NOTED.
[2019-01-31 06:55] LABS: BASOPHILS 0 % (0-2); EOSINOPHILS 1.4 % (0-7); HEMATOCRIT 41.3 % (42.0-54.0); IMMATURE GRANULOCYTES 0.4 % (0-5); LYMPHOCYTES 10.7 % (15-50); MCH 29.6 pg (26.0-34.0); MCHC 33.9 g/dL (31.0-37.0); MCV 87.3 fL (80.0-100.0); MEAN PLATELET VOLUME 10.5 fL (7.4-10.4); MONOCYTES 6.4 % (2-11); NEUTROPHILS 81.1 % (40-80); PLATELET COUNT 198 10x3/uL (130-400); RBC 4.73 10x6/uL (4.20-6.10); WBC 11.6 10x3/uL (4.8-10.8)
[2019-01-31 07:23] LABS: CALC OSMOLALITY 284 mosm/kg (275-300); CALCIUM 8.6 mg/dL (8.5-10.1); CARBON DIOXIDE 30.1 mmol/L (21.0-32.0); CHLORIDE - SERUM 103 mmol/L (98-107); CREATININE - SERUM 0.9 mg/dL (0.6-1.3); GLUCOSE 117 mg/dL (74-106); POTASSIUM - SERUM 3.8 mmol/L (3.5-5.1); SODIUM 139 mmol/L (136-145); eGFR NON AFRICAN AMERICAN 89 mL/min (90-120)
[2019-01-31 07:25] LABS: UREA NITROGEN 28 mg/dL (7-18)
--- NOTE | 2019-01-31 07:42 | NUR ---
ALERT AND ORIENTED. TELEMERTY SHOWS CAF 69. RIGHT GROIN CATH SITE CLEAN AND DRY. PPP. O2 AT 9 L/M PER NC. ROSIE PATENT TO GRAVITY BAG.LOWER LEGS DISCOLORED AND SCALEY. NO NEEDS NOTED. WILL MONITOR
[2019-01-31 09:28] VITALS: BP 130/72
[2019-01-31 12:53] VITALS: BP 108/64
--- NOTE | 2019-01-31 13:47 | NUR ---
UP IN BEDSIDE CHAIR. DENIES ANY NEEDS.WILL MONITOR.
[2019-01-31] MEDS ORDERED: BROVANA15 MCG/2 M INH (13:50)
[2019-01-31] MEDS ORDERED: ATROVENT 0.02%2.5 ML UPD (13:50)
[2019-01-31] MEDS ORDERED: PLAVIX75 MG PO (13:50)
[2019-01-31] MEDS ORDERED: PROTONIX40 MG PO (13:52)
[2019-01-31] MEDS ORDERED: LISINOPRIL10 MG PO (13:52)
[2019-01-31] MEDS ORDERED: PULMICORT0.5 MG/21 UPD (13:52)
[2019-01-31] MEDS ORDERED: BETAPACE 80 MG80 MG PO (15:23)
[2019-01-31] MEDS ORDERED: ASPIRIN81 MG PO (15:23)
[2019-01-31] MEDS ORDERED: ZOCOR20 MG PO (15:23)
--- NOTE | 2019-01-31 17:40 | NUR ---
I have reviewed this patient and I concur with the Shift Assessment completed by the Licensed Practical Nurse today this shift.
--- NOTE | 2019-01-31 17:42 | NUR ---
IV DCD AND TELEMERTY REMOVED. PT TO BE ADMITTED TO REHAB. REPORT CALL TO JAIR GEORGE. WILL GO TO ROOM 1113B AFTER EATING
--- NOTE | 2019-02-01 08:43 | MORECARE ---
CASE MANAGEMENT DISCHARGE SUMMARY PATIENT: JUANITA GARVEY UNIT: [id number] ADM DATE: 01/22/19 AGE: 68 : 50 SEX: M ROOM/BED: D.2121 AUTHOR: MANNIEDOC PHYSICIAN: REFERRING PHYSICIAN: LUANA POPE MD DATE OF SERVICE: 02/01/19 Discharge Plan Patient Name: JUANITA GARVEY Facility: [facility]:[place] : 1950 Planned Disposition: Inpatient Rehab Anticipated Discharge Date: 01/30/19 Discharge Date: 01/31/2019 Expected LOS: 8 Initial Reviewer: [email or web address] Initial Review Date: 01/23/2019 Generated: 02/01/19 9:43 am Comments DCP- Discharge Planning Updated by [email or web address]: Dougie Rodriguez on 01/29/19 10:[address] Patient Name: JUANITA GARVEY Encounter No: [id number] : 1950 Primary Insurance: MEDICARE A & B Anticipated DC Date: 01-29-2019 Planned Disposition: Inpatient Rehab External Planned Provider: [facility] INPATIENT REHAB DCP follow-up note: DURING MULTIDISCIPLINARY TEAM MEETING, [facility] INPATIENT REHAB, THEY PLAN TO ACCEPT PT TODAY FOR REHAB IF STABLE, [facility]J CARR REPORTS PT TO BE STABLE. PT NOTIFIED, IN AGREEMENT WITH DISCHARGE TO INPATIENT REHAB, PT STATES HE HOPES TO BE ABLE TO RETURN HOME ALONE AFTER REHAB. IMPORTANT MESSAGE FROM MEDICARE PROVIDED AND EXPLAINED. [facility] INPATIENT REHAB TO CONTACT MED 2 NURSE WITH ROOM NUMBER WHEN READY TO ACCEPT PT AND NURSE REPORT. Dougie Rodriguez, CASE MANAGEMENT DCP- Discharge Planning Updated by [id number]: Viry Hays on 01/25/19 6:[address] CM spoke with patient at bedside. Patient stated that he wanted everything done to save his life including chest compressions and ventilator. CM explained that he is not able to care for himself at home alone. Patient agrees to inpatient rehab for therapy. CM explained that he will have to participate in therapy before he can go to rehab. CM attempted to call Joanie patient's sister since she had left message with nursing for CM to call. CM left message for her to callback. CM will continue to follow and assist as needed with discharge planning / needs. Appended by Viry Hays on 01/25/2019 19:01 CDT: Patient is currently on 8-6L 02 and on BiPap. Patient will need to weaned down on 02 prior to discharge . DCP- Discharge Planning Updated by [id number]: Viry Hays on 01/23/19 4:[address] Patient Name: JUANITA GARVEY Admission Status: Elective Accout number: [id number] Admission Date: 01-22-2019 : 1950 Admission Diagnosis: Attending: LUANA MEYER Current LOS: 1 Anticipated DC Date: Planned Disposition: Home Primary Insurance: MEDICARE A & B Discharge Planning Comments: CM met with patient at bedside after explaining CM role and obtaining verbal consent. Patient lives at home alone where he is independent with his care and plans to return there upon discharge. Patient feels this would be a safe discharge. CM discussed availability / needs of home health and medical equipment. Patient stated he does have meals on wheels. Patient does have bilateral lower ext. wounds and he has not been receiving any treatment. Patient denies any discharge needs at this time. Patient may benefit from rehab and possible home health upon discharge. Patient states he will have his family drive him home upon discharge. CM will continue to follow and assist as needed with discharge planning / needs. Film Technician: Viry Hays DCPIA - Discharge Planning Initial Assessment Updated by [id number]: Viry Hays on 01/23/19 5:30 pm * Is the patient Alert and Oriented? Yes * How many steps to enter\exit or inside your home? * PCP [facility] [place] * Pharmacy [facility] * Preadmission Environment Home Alone * ADLs Independent * Other Equipment B/P CUFF, WALKER, SHOWER CHAIR, CANE * List name and contact numbers for known caregivers / representatives who currently or will assist patient after discharge: LISY - DAUGHTER- [phone] CAROLE - - [phone] * Verbal permission to speak to the caregivers and representatives has been obtained from the patient. N/A * Community resources currently utilized Meals on Wheels * Additional services required to return to the preadmission environment? No * Can the patient safely return to the preadmission environment? Yes * Has this patient been hospitalized within the prior 30 days at any hospital? No Coverage Notice Reviewer: [id number] Rhonda Rodriguze Notice Issued Date-Time: 01/29/2019 8:55 Notice Type: IM Discharge Notice Notice Delivered To: Patient Relationship to Patient: Fire Prevention Specialist Name: Delivery Method: HAND - Hand Delivered Maria Elena Days: Prior Verbal Notification: Recipient Understood Notice: Yes Recipient Signature: Yes Med Rec Note Co-signed by Attending: Coverage Notice Comment: Last DP export: 01/29/19 2:05 p Patient Name: JUANITA GARVEY Page [id number] at 0843 All edits/amendments must be made on the electronic document DICTATION DATE: 02/01/19842 GRADE SETTER: OLIVIER 02/01/19 0843 RPT#: [id number] DC DATE:01/31/19 STATUS: DIS IN [facility] [address] [place] [address] END OF REPORT
== END 2019-01-31 18:43 | DRG 248 ==
LOC: D.ICU 19:39 → D.CVICU 20:02 → D.M2 01-28 15:01 → D.SDCHOLD 01-29 13:15 → D.M2 01-31 18:43
PROVIDERS: Emergency Medicine; Internal Medicine Interventional Cardiology; Internal Medicine Nephrology; Internal Medicine Pulmonary Disease; ADMIT Family Medicine; ATTEND Family Medicine
PROC: B2151ZZ Fluoroscopy of Left Heart using Low Osmolar Contrast (ICD-10-PCS; 2019-01-24)
PROC: 4A023N7 Measurement of Cardiac Sampling and Pressure, Left Heart, Percutaneous Approach (ICD-10-PCS; 2019-01-24)
PROC: 02703FZ Dilation of Coronary Artery, One Artery with Three Intraluminal Devices, Percutaneous Approach (ICD-10-PCS; principal; 2019-01-24 14:30)
PROC: B2111ZZ Fluoroscopy of Multiple Coronary Arteries using Low Osmolar Contrast (ICD-10-PCS; 2019-01-24 14:30)
DX: I21.4 Non-ST elevation (NSTEMI) myocardial infarction (principal); J96.01 Acute respiratory failure with hypoxia; I50.31 Acute diastolic (congestive) heart failure; J18.9 Pneumonia, unspecified organism; S22.42XA Multiple fractures of ribs, left side, initial encounter for closed fracture; J44.1 Chronic obstructive pulmonary disease with (acute) exacerbation; F17.203 Nicotine dependence unspecified, with withdrawal; J98.11 Atelectasis; J44.0 Chronic obstructive pulmonary disease with (acute) lower respiratory infection; I11.0 Hypertensive heart disease with heart failure; K21.9 Gastro-esophageal reflux disease without esophagitis; M19.90 Unspecified osteoarthritis, unspecified site; D64.9 Anemia, unspecified; I73.9 Peripheral vascular disease, unspecified; I48.91 Unspecified atrial fibrillation; W19.XXXA Unspecified fall, initial encounter; L85.3 Xerosis cutis; E87.6 Hypokalemia; E78.5 Hyperlipidemia, unspecified

== ENCOUNTER 2019-01-31 16:19 | Inpatient (IN) | payer MEDICARE ==
[~2019-01-31] VITALS: Ht 182.9 cm; Wt 108.9 kg
[~2019-01-31 16:19] MED LIST: ASPIRIN81 MG PO; ATROVENT 0.02%2.5 ML UPD; BAYER CHEWABLE81 MG PO; BETAPACE 80 MG80 MG PO; BROVANA15 MCG/2 M INH; CATAPRES0.2 MG PO; FUROSEMIDE40 MG PO; IBUPROFEN200 MG PO; LEXAPRO20 MG PO; LISINOPRIL10 MG PO; LISINOPRIL20 MG PO; NORVASC5 MG PO; OMEPRAZOLE20 M1 PO; PLAVIX75 MG PO; PROTONIX40 MG PO; PULMICORT0.5 MG/21 UPD; ZOCOR20 MG PO
--- NOTE | 2019-01-31 18:35 | NUR ---
RECEIVED PT TO FLOOR VIA W/C ACCOMPANIED BY HOSPITAL STAFF. ORIENTED PT TO ROOM, BATHROOM, AND FUNCTIONS OF REMOTE.
[2019-01-31 22:12] VITALS: BP 133/67; BMI 32.6
--- NOTE | 2019-02-01 02:41 | NUR ---
PT LYING IN BED EYES CLOSED RESTING QUIETLY.
--- NOTE | 2019-02-01 04:50 | NUR ---
PT LYING IN BED EYES CLOSED RESTING QUIETLY. BIPAP IN USE
[2019-02-01 07:21] LABS: BASOPHILS 0.1 % (0-2); EOSINOPHILS 2.5 % (0-7); HEMATOCRIT 41.7 % (42.0-54.0); HEMOGLOBIN 13.7 g/dL (13.5-17.5); IMMATURE GRANULOCYTES 0.4 % (0-5); LYMPHOCYTES 11.1 % (15-50); MCH 29.8 pg (26.0-34.0); MCHC 32.9 g/dL (31.0-37.0); MEAN PLATELET VOLUME 10.9 fL (7.4-10.4); MONOCYTES 6.5 % (2-11); NEUTROPHILS 79.4 % (40-80); PLATELET COUNT 222 10x3/uL (130-400); WBC 12.1 10x3/uL (4.8-10.8)
[2019-02-01 07:25] LABS: MCV 90.7 fL (80.0-100.0)
[2019-02-01 07:37] VITALS: BP 117/69
[2019-02-01 07:41] LABS: CALC OSMOLALITY 287 mosm/kg (275-300); CALCIUM 8.7 mg/dL (8.5-10.1); CHLORIDE - SERUM 101 mmol/L (98-107); GLUCOSE 129 mg/dL (74-106); POTASSIUM - SERUM 3.8 mmol/L (3.5-5.1); SODIUM 139 mmol/L (136-145); UREA NITROGEN 35 mg/dL (7-18); eGFR NON AFRICAN AMERICAN 79 mL/min (90-120)
[2019-02-01 07:43] LABS: APPEARANCE CLEAR (CLEAR); BILIRUBIN NEGATIVE (NEGATIVE); COLOR YELLOW (YELLOW); GLUCOSE NEGATIVE (NEGATIVE); KETONE NEGATIVE (NEGATIVE); NITRITE NEGATIVE (NEGATIVE); PROTEIN NEGATIVE (NEGATIVE); UROBILINOGEN NORMAL (NORMAL)
--- NOTE | 2019-02-01 08:00 | NUR ---
PT RESTING IN BED WITH EYES OPEN CALL LIGHT IN REACH NO PROBLEMS WILL MONITER
[2019-02-01 08:18] VITALS: Ht 182.9 cm; Wt 108.9 kg
--- NOTE | 2019-02-01 18:21 | NUR ---
PT RESTING IN BED WITH EYES OPEN CALL LIGHT IN REACH NO PROBLEMS WILL MONITER
[2019-02-01 19:00] VITALS: BP 96/57
--- NOTE | 2019-02-01 19:10 | NUR ---
BEDSIDE REPORT COMPLETE. PT LYING IN BED HOB 30 DEGREES EYES CLOSED RESTING QUIETLY. EASILY AROUSED WITH VERBAL STIMULI. NO CONCERNS VOICED. DENIES ANY NEEDS OR PAIN. VS STABLE. SHIFT ASSESSMENT COMPLETE. VELEZ PATENT FREE OF KINKS. CALL LIGHT AND WATER WITHIN REACH, FALL PRECAUTIONS IN PLACE. WILL CONTINUE TO MONITOR
--- NOTE | 2019-02-01 20:07 | NUR ---
CLAMPED F/C FOR BLADDER TRAINING.
--- NOTE | 2019-02-01 23:34 | NUR ---
PT LYING IN BED HOB 25 DEGREES EYES CLOSED RESTING QUIETLY.
--- NOTE | 2019-02-02 01:58 | NUR ---
UNCLAMPED VELEZ, PT HAS NOT FELT ANY SENSATION TO URINATE. 200 ML EMPTIED FROM BLADDER. VELEZ RECLAMPED
--- NOTE | 2019-02-02 02:45 | NUR ---
PT LYING IN BED WATCHING TV. DENIES ANY NEEDS OR PAIN. RR EVEN AND UNLABORED. CONTINUES ON 8L VIA HF NC. WILL CONTINUE TO MONITOR
--- NOTE | 2019-02-02 04:34 | NUR ---
UNCLAMPED VELEZ. PT ASLEEP. EMPTIED 50ML RON URINE. RECLAMPED VELEZ
--- NOTE | 2019-02-02 05:22 | NUR ---
PT LYING IN BED EYES CLOSED RESTING QUIETLY. RR EVEN AND UNLABORED. CONTINUES ON 8L VIA HF NC. WILL CONTINUE TO MONITOR
--- NOTE | 2019-02-02 07:27 | NUR ---
PT RESTING IN BED WITH EYES OPEN CALL LIGHT IN REACH NO PROBLEMS WILL MONITER
--- NOTE | 2019-02-02 16:33 | NUR ---
PT RESTING IN BED WITH EYES OPEN CALL LIGHT IN REACH WILL MONITER
[2019-02-02 19:30] VITALS: BP 112/62
--- NOTE | 2019-02-02 19:30 | NUR ---
BEDSIDE REPORT COMPLETE. PT SITTING UP IN BED WATCHING TV. ALERT AND ORIENTED X4. NO CONCERNS VOICED. C/O 5/10 LEFT RIBCAGE PAIN DEEP ACHE. WILL ADMINISTER PAIN MEDICATION PER REQUEST. VELEZ PATENT FREE OF KINKS. CONTINUES ON 9L VIA NC. CALL LIGHT AND WATER WITHIN REACH, FALL PRECAUTIONS IN PLACE. WILL CONTINUE TO MONITOR
--- NOTE | 2019-02-02 20:05 | NUR ---
VELEZ CLAMPED FOR BLADDER TRAINING
--- NOTE | 2019-02-02 22:15 | NUR ---
UNCLAMPED VELEZ 100ML RON URINE. RECLAMPED VELEZ
--- NOTE | 2019-02-02 23:35 | NUR ---
QUIET HOURS. PT LYING IN BED EYES CLOSED RESTING QUIETLY. RR EVEN AND UNLABORED. BIPAP ON. WILL CONTINUE TO MONITOR
--- NOTE | 2019-02-03 00:29 | NUR ---
UNCLAMPED VELEZ 100ML RON URINE. RECLAMPED VELEZ
--- NOTE | 2019-02-03 02:15 | NUR ---
UNCLAMPED VELEZ PT NO URINE OUTPUT NOTED. RECLAMPED VELEZ
--- NOTE | 2019-02-03 02:33 | NUR ---
PT LYING IN BED ON RIGHT SIDE EYES CLOSED RESTING QUIETLY. BIPAP ON. RR EVEN AND UNLABORED. WILL CONTINUE TO MONITOR
--- NOTE | 2019-02-03 04:21 | NUR ---
UNCLAMPED VELEZ 200ML RON COLORED URINE. RECLAMPED VELEZ
--- NOTE | 2019-02-03 05:49 | NUR ---
TOOK PT OFF BIPAP PER PT REQUEST PLACED BACK ON 9L VIA HF NC. NO SIGNS OF DISTRESS NOTED. NO CONCERNS VOICED. C/O MILD DISCOMFORT AFTER REPOSITIONING ON LEFT SIDE. WILL CONTINUE TO MONITOR
--- NOTE | 2019-02-03 06:19 | NUR ---
DEFLATED VELEZ BALLOON 1.5ML SALINE REMOVED. DC VELEZ WITH CATH TIP INTACT. PROVIDED PERICARE AND URINAL. PT TOLERATED WELL.
[2019-02-03 09:07] VITALS: BP 118/70
[2019-02-03 18:55] VITALS: BP 127/67
--- NOTE | 2019-02-03 18:55 | NUR ---
BEDSIDE REPORT COMPLETE. PT SITTING UP IN BED ALERT AND ORIENTED X4. NO CONCERNS VOICED. C/O LEFT SIDE 11/14 STINGING ACHING PAIN REQUEST PAIN MEDS. WILL ADMININSTERE NORCO 7.5 PER ORDERS. VS STABLE. SHIFT ASSESSMENT COMPLETE. CALL LIGHT, URINAL, AND HYDRATION WITHIN REACH, FALL PRECAUTIONS IN PLACE. WILL CONTINUE TO MONITOR
--- NOTE | 2019-02-03 22:50 | NUR ---
APPLIED BILEVEL FIO2 30% SPO2 94 DOLORES C/D BS RR 30 UNLABORED ZERO DYSPNEA EQUALATERAL EXCURSION NO IMMEDIATE S/S RESP DISTRESS
--- NOTE | 2019-02-04 00:53 | NUR ---
QUIET HOURS. PT LYING IN BED EYES CLOSED RESTING QUIETLY. BIPAP ON. RR EVEN AND UNLABORED. WILL CONTINUE TO MONITOR
--- NOTE | 2019-02-04 03:31 | NUR ---
PT LYING IN BED ON RIGHT SIDE EYES CLOSED RESTING QUIETLY.
--- NOTE | 2019-02-04 05:47 | NUR ---
PT SITTING UP IN BED WATCHING TV. CONTINUES ON 8L VIA HF NC. DENIES ANY NEEDS AT THIS TIME. CL IN REACH.
[2019-02-04 07:28] LABS: CALC OSMOLALITY 283 mosm/kg (275-300); CALCIUM 8.3 mg/dL (8.5-10.1); CHLORIDE - SERUM 103 mmol/L (98-107); CREATININE - SERUM 0.9 mg/dL (0.6-1.3); GLUCOSE 129 mg/dL (74-106); POTASSIUM - SERUM 4.1 mmol/L (3.5-5.1); SODIUM 139 mmol/L (136-145); UREA NITROGEN 25 mg/dL (7-18); eGFR NON AFRICAN AMERICAN 89 mL/min (90-120)
[2019-02-04 07:32] LABS: BASOPHILS 0.1 % (0-2); EOSINOPHILS 2.4 % (0-7); HEMATOCRIT 38.9 % (42.0-54.0); HEMOGLOBIN 12.6 g/dL (13.5-17.5); IMMATURE GRANULOCYTES 0.3 % (0-5); LYMPHOCYTES 8.8 % (15-50); MCH 29.8 pg (26.0-34.0); MCHC 32.4 g/dL (31.0-37.0); MEAN PLATELET VOLUME 10.9 fL (7.4-10.4); MONOCYTES 7.5 % (2-11); NEUTROPHILS 80.9 % (40-80); PLATELET COUNT 201 10x3/uL (130-400); RBC 4.23 10x6/uL (4.20-6.10); RDW 17.2 % (11.5-14.5); WBC 12.7 10x3/uL (4.8-10.8)
[2019-02-04 08:00] VITALS: BP 144/74
--- NOTE | 2019-02-04 08:20 | NUR ---
SITTING UP IN BED FOR BREAKFAST. FEEDS SELF. KEEPS HEAD LEANED TO THE RIGHT AT TIMES. SKIIN TO BLE IS DRY AND SCALY.
--- NOTE | 2019-02-04 14:21 | NUR ---
PATIENT ADMITTED TO REHAB FROM ACUTE FLOOR. DISCHARGE PLANS ARE FOR PATIENT TO RETURN TO HIS HOME. HE HAS MEALS ON WHEELS, DME IS IS WALKER, CANE AND SHOWER CHAIR. HIS PCP IS IN [place] [facility]. AT DISCHARGE HE WILL NEED APPOINTMENTS WITH DR. CARTER AND DR. MARINELLI. WILL CONTINUE TO FOLLOW WITH PATIENT.
--- NOTE | 2019-02-04 19:36 | NUR ---
GREETED PATIENT AND INTRODUCED MYSELF. PATIENT IS LAYING IN BED WATCHING TV. O2 AT 8L VIA NC IN USE. RESPIRATIONS EVEN. NO S/S OF DISTRESS. STATES PAIN IS 3/10 ON LEFT SIDE. DENIES ANY FURTHER NEEDS AT THIS TIME. CALL LIGHT IN REACH.
[2019-02-04 20:37] VITALS: BP 103/59
--- NOTE | 2019-02-04 23:16 | NUR ---
RESPIRATORY HAD PUT PATIENT ON BIPAP. PATIENT REMOVED MASK AND REFUSES TO WEAR. RESPIRATORY CONTACTED.
--- NOTE | 2019-02-05 00:23 | NUR ---
PATIENT AWAKE AND WATCHING TV. O2 AT 8 L IN USE VIA HIGH FLOW NC. RESPIRATIONS EVEN. NO S/S OF DISTRESS. CALL LIGHT IN REACH.
--- NOTE | 2019-02-05 01:11 | NUR ---
PATIENTS O2 SATURATION WAS AT 9O ON 8L OF HIGH FLOW O2 VIA NC. PATIENT AGREED THAT MAYBE HE COULD WEAR THE BIPAP FOR A SHORT WHILE. RESPIRATORY CONTACTED.
--- NOTE | 2019-02-05 02:31 | NUR ---
PATIENT MAIL LIST LIBRARIAN LIGHT AND ASKING FOR PAIN MEDICATION. WHILE ADMINISTERING PRN PAIN MEDICATION PATIENT BEGAN TO CURSE AT THIS NURSE. NURSE ASK PATIENT TO REFRAIN FROM USING ABUSIVE LANGUAGE.
--- NOTE | 2019-02-05 07:30 | NUR ---
PT RESTING IN BED WITH EYES OPEN CALL LGIHT IN REACH NO PROBLEMS WILL MONITER
--- NOTE | 2019-02-05 14:20 | NUR ---
Nutrition Follow-up: Diet: Cardiac PO intake: none recored since 02/01, previously ~48% average x 11 meals. Visit with pt at lunch time and he seemed confused. He thought that he had already eaten his lunch, but lunch tray was untouched. Pt reported that he would eat. Requested nursing staff help pt to get setup for lunch. Pt states that he is willing to get Ensure with meals. No BM recorded since rehab admit x 5 days now. Wt: 240# (02/01/19) Meds noted: lasix, norco, miralax PRN. Labs and skin assessment reviewed. Continue Cardiac diet. Will add Ensure with meals. Pt may benefit from some feeding assistance at meal times. RD Following
--- NOTE | 2019-02-05 17:42 | NUR ---
PT RESTING IN BED WITH EYES OPEN CALL LIGHT IN REACH WILL MONITER
[2019-02-05 18:44] VITALS: BP 142/73
--- NOTE | 2019-02-05 19:01 | NUR ---
GREETED PATIENT AND INTRODUCED MYSELF HIS NURSE. PATIENT IS LAYING IN BED WATCHING TV. RESPIRATIONS EVEN. NO S/S OF DISTRESS. 8L OF O2 IN USE WITH HIGH FLOW NASAL CANNULA. STATES THAT PAIN IS 5/10 ON LEFT SIDE. DENIES ANY FURTHER NEEDS AT THIS TIME. CALL LIGHT IN REACH.
[2019-02-05 20:56] VITALS: BP 112/60
--- NOTE | 2019-02-06 02:08 | NUR ---
PT. RESTING QUIETLY WITH EYES CLOSED. BIPAP IN USE. RESPIRATIONS EVEN AND UNLABORED. NO S/S OF DISTRESS. CALL LIGHT IN REACH.
[2019-02-06 07:02] LABS: BASOPHILS 0 % (0-2); EOSINOPHILS 2.4 % (0-7); HEMATOCRIT 36.8 % (42.0-54.0); HEMOGLOBIN 11.9 g/dL (13.5-17.5); IMMATURE GRANULOCYTES 0.3 % (0-5); LYMPHOCYTES 11.2 % (15-50); MCHC 32.3 g/dL (31.0-37.0); MCV 92.7 fL (80.0-100.0); MEAN PLATELET VOLUME 11.4 fL (7.4-10.4); MONOCYTES 7.6 % (2-11); NEUTROPHILS 78.5 % (40-80); PLATELET COUNT 206 10x3/uL (130-400); RBC 3.97 10x6/uL (4.20-6.10); RDW 17.2 % (11.5-14.5); WBC 11.5 10x3/uL (4.8-10.8)
[2019-02-06 07:14] LABS: CALC OSMOLALITY 279 mosm/kg (275-300); CALCIUM 8.2 mg/dL (8.5-10.1); CARBON DIOXIDE 31.9 mmol/L (21.0-32.0); CHLORIDE - SERUM 103 mmol/L (98-107); CREATININE - SERUM 0.9 mg/dL (0.6-1.3); GLUCOSE 107 mg/dL (74-106); POTASSIUM - SERUM 4.6 mmol/L (3.5-5.1); SODIUM 138 mmol/L (136-145); UREA NITROGEN 25 mg/dL (7-18); eGFR NON AFRICAN AMERICAN 89 mL/min (90-120)
--- NOTE | 2019-02-06 07:35 | NUR ---
PT RESTING IN BED WITH EYS OPEN CALL LIGHT IN REACH WILL MONITER
[2019-02-06 07:51] VITALS: BP 130/74
--- NOTE | 2019-02-06 14:39 | NUR ---
PT RESTING IN BED WITH EYES OPEN CALL LIGHT IN REACH NO PROBLEMS WILL MONITER
--- NOTE | 2019-02-06 19:24 | NUR ---
GREETED PATIENT AND INTRODUCED MYSELF HIS NURSE. PT. LAYING IN BED IN SUPINE POSITION WATCHING TV. O2 AT 8L VIA HIGH FLOW NC. RESPIRATIONS EVEN. NO S/S OF DISTRESS. STATES THAT PAIN IS 3/10 ON LEFT SIDE AT THIS TIME. DENIES ANY FURTHER NEEDS. CALL LIGHT IN REACH.
[2019-02-06 20:45] VITALS: BP 136/67
--- NOTE | 2019-02-07 01:10 | NUR ---
PT RESTING WITH EYES CLOSED. BIPAP IN USE. RESPIRATIONS EVEN. NO S/S OF DISTRESS. CALL LIGHT IN REACH.
--- NOTE | 2019-02-07 07:20 | NUR ---
PATIENT IS ALERT/ORIENT. CALL LIGHT WITHIN REACH. VOICES NO NEEDS AT THIS TIME. WILL CONTINUE WITH PLAN OF CARE
[2019-02-07 07:32] VITALS: BP 124/65
--- NOTE | 2019-02-07 10:22 | NUR ---
PATIENT HELPED TO BATHROOM. MODERATE ASST OF TWO PATIENTS
--- NOTE | 2019-02-07 11:27 | NUR ---
CARE TEAM MEETING: PATIENT SISTER AND BROTHER N LAW ATTENDED MEETING. THEIR QUESTIONS AND CONCERNS WHERE ANSWERED. FAMILY STATED THAT THEY WOULD LIKE FOR PATIENT TO BE REFERRED TO A SNF AT DISCHARGE. WILL SPEAK WITH PATIENT AND WILL MAKE REFRRAL IF PATIENT AGRESS. WILL CONTINUE TO FOLLOW WITH PATIENT.
--- NOTE | 2019-02-07 13:09 | NUR ---
PRN PAIN MEDICATION GIVEN PER PATIENT REQUEST BEFORE THERAPY
--- NOTE | 2019-02-07 19:17 | NUR ---
PATIENT RECEIVED SITTING UP IN BED. AT SIDE. ASSESSMENT & VITAL SIGNS DONE. NO C/O PAIN OR DISTRESS. BED LOW. CALL LIGHT WITHIN REACH. WILL CONTINUE TO MONITOR.
--- NOTE | 2019-02-07 20:00 | NUR ---
PATIENT RECEIVED SITTING UP IN BED WATCHING TV. ASSESSMENT & VITAL SIGNS DONE. NO C/O PAIN OR DISTRESS AT THIS TIME. BED LOW. URINAL & CALL LIGHT WITHIN REACH. WILL CONTINUE TO MONITOR.
[2019-02-07 21:11] VITALS: BP 117/64
--- NOTE | 2019-02-08 02:55 | NUR ---
PATIENT EYES CLOSED. CPAP ON. BED LOW. CALL LIGHT WITHIN REACH. WILL CONTINUE TO MONITOR.
--- NOTE | 2019-02-08 04:29 | NUR ---
I have reviewed this patient and I concur with the Shift Assessment completed by the Licensed Practical Nurse today this shift.
[2019-02-08 07:47] LABS: BASOPHILS 0.2 % (0-2); EOSINOPHILS 3.3 % (0-7); HEMATOCRIT 35.9 % (42.0-54.0); HEMOGLOBIN 11.5 g/dL (13.5-17.5); IMMATURE GRANULOCYTES 0.1 % (0-5); LYMPHOCYTES 12.4 % (15-50); MCH 29.6 pg (26.0-34.0); MCV 92.3 fL (80.0-100.0); MEAN PLATELET VOLUME 10.7 fL (7.4-10.4); MONOCYTES 6.4 % (2-11); NEUTROPHILS 77.6 % (40-80); PLATELET COUNT 189 10x3/uL (130-400); RBC 3.89 10x6/uL (4.20-6.10); RDW 17.1 % (11.5-14.5); WBC 8.9 10x3/uL (4.8-10.8)
[2019-02-08 07:53] LABS: CALC OSMOLALITY 276 mosm/kg (275-300); CALCIUM 8.2 mg/dL (8.5-10.1); CARBON DIOXIDE 33.8 mmol/L (21.0-32.0); CHLORIDE - SERUM 102 mmol/L (98-107); CREATININE - SERUM 0.9 mg/dL (0.6-1.3); GLUCOSE 103 mg/dL (74-106); POTASSIUM - SERUM 4.9 mmol/L (3.5-5.1); SODIUM 137 mmol/L (136-145); UREA NITROGEN 22 mg/dL (7-18); eGFR NON AFRICAN AMERICAN 89 mL/min (90-120)
[2019-02-08 08:55] VITALS: BP 127/68
--- NOTE | 2019-02-08 09:45 | NUR ---
PT AM MEDS ADMINISTERED. PT DENIES NEEDS. WCTM.
--- NOTE | 2019-02-08 14:18 | NUR ---
Nutrition Follow Up: Patient stated his appetite is good. Denies N/V/D/C. Has been drinking Ensure. PO intake- 94 % x 9 meals No BM recorded No new weight Meds: norco, lasix, protonix Labs: BUN- 22(H), Ca-8.2(L) Continue current diet as ensure as tolerated. Recommend laxative. Clinical Dietitian Following
--- NOTE | 2019-02-08 17:38 | NUR ---
PT EATING DINNER, DENIES NEEDS. WCTM
--- NOTE | 2019-02-08 20:00 | NUR ---
PATIENT RECEIVED SITTING UP IN BED WATCHING TV. ASSESSMENT & VITAL SIGNS DONE. NO C/O PAIN OR DISTRESS AT THIS TIME. BED LOW. CALL LIGHT & URINAL WITHIN REACH. WILL CONTINUE TO MONITOR.
[2019-02-08 22:00] VITALS: BP 121/62
--- NOTE | 2019-02-09 02:57 | NUR ---
I have reviewed this patient and I concur with the Shift Assessment completed by the Licensed Practical Nurse today this shift.
--- NOTE | 2019-02-09 03:44 | NUR ---
PATIENT EYES CLOSED. RESPIRATIONS 18 & EVEN. BED LOW. ALARM ON. CPAP ON. CALL LIGHT & URINAL WITHIN REACH. WILL CONTINUE TO MONITOR.
--- NOTE | 2019-02-09 08:00 | NUR ---
PT RESTING IN BED WITH EYES OPEN CALL LIGHT IN REACH NO PROBLEMS WILL MONITER
--- NOTE | 2019-02-09 19:30 | NUR ---
PT LYING IN BED. DENIES NEEDS AT THIS TIME. BED IN LOW SIDE RAILS X2. RESP EVEN AND UNLABORED. O2 ON 8L HF. A/O X4. LUNGS CLEAR LOWER LUNGS DIMINISHED. BOWEL ACTIVE X4. WCTM
--- NOTE | 2019-02-09 20:45 | NUR ---
PT WANTING TO SIT UP IN CHAIR. ASSISTED TO WHEELCHAIR. CL IN REACH. DENIES FURTHER NEEDS.
[2019-02-09 21:03] VITALS: BP 126/50
--- NOTE | 2019-02-09 23:26 | NUR ---
QUIET HOURS. PT LYING IN BED HOB 30 DEGREES EYES CLOSED RESTING QUIETLY. RR EVEN AND UNLABORED. CONTINUES ON 7L O2 VIA HF NC. WILL CONTINUE TO MONITOR
--- NOTE | 2019-02-10 01:52 | NUR ---
PT RESTING QUIETLY. CPAP ON. NO DISTRESS NOTED. CL IN REACH. WCTM
--- NOTE | 2019-02-10 02:49 | NUR ---
I have reviewed this patient and I concur with the Shift Assessment completed by the Licensed Practical Nurse today this shift.
--- NOTE | 2019-02-10 06:07 | NUR ---
PT SITTING UP IN BED. CPAP ON. NO DISTRESS NOTED. WAKES TO VERBAL STIMULI. DENIES NEEDS. WCTM
--- NOTE | 2019-02-10 07:50 | NUR ---
PT RESTING IN BED WITH EYES OPEN CALL LIGHT IN REACH WILL MONITER
--- NOTE | 2019-02-10 18:38 | NUR ---
PT RESTING IN BED WITH EYES OPEN CAKK LIGHT IN REACH NO PROBLEMS WILL MONITER
--- NOTE | 2019-02-10 19:30 | NUR ---
PT RESTING QUIETLY. CL IN REACH. NO DISTRESS NOTED. CPAP ON. BED IN LOW SIDE RAILS X3. RESP EVEN AND UNLABORED. WCTM
[2019-02-10 20:09] VITALS: BP 119/60
--- NOTE | 2019-02-10 23:42 | NUR ---
QUIET HOURS. PT LYING IN BED EYES CLOSED RESTING QUIETLY. BIPAP IN USE. NO SIGNS OF ACUTE DISTRESS NOTED.
--- NOTE | 2019-02-11 01:24 | NUR ---
I have reviewed this patient and I concur with the Shift Assessment completed by the Licensed Practical Nurse today this shift.
--- NOTE | 2019-02-11 03:29 | NUR ---
PT RESTING QUIETLY. CL IN REACH. NO DISTRESS NOTED. CPAP ON. WCTM
[2019-02-11 06:21] LABS: BASOPHILS 0.1 % (0-2); EOSINOPHILS 3.5 % (0-7); HEMATOCRIT 36.6 % (42.0-54.0); HEMOGLOBIN 11.5 g/dL (13.5-17.5); IMMATURE GRANULOCYTES 0.1 % (0-5); MCH 29.3 pg (26.0-34.0); MCHC 31.4 g/dL (31.0-37.0); MCV 93.4 fL (80.0-100.0); MEAN PLATELET VOLUME 10.5 fL (7.4-10.4); MONOCYTES 6.2 % (2-11); NEUTROPHILS 76.1 % (40-80); PLATELET COUNT 173 10x3/uL (130-400); RBC 3.92 10x6/uL (4.20-6.10); WBC 7.8 10x3/uL (4.8-10.8)
[2019-02-11 06:35] LABS: CALC OSMOLALITY 278 mosm/kg (275-300); CALCIUM 8.2 mg/dL (8.5-10.1); CARBON DIOXIDE 33.4 mmol/L (21.0-32.0); CHLORIDE - SERUM 102 mmol/L (98-107); CREATININE - SERUM 0.9 mg/dL (0.6-1.3); GLUCOSE 107 mg/dL (74-106); POTASSIUM - SERUM 4.5 mmol/L (3.5-5.1); SODIUM 138 mmol/L (136-145); UREA NITROGEN 22 mg/dL (7-18); eGFR NON AFRICAN AMERICAN 89 mL/min (90-120)
[2019-02-11 08:00] VITALS: BP 133/69
--- NOTE | 2019-02-11 10:30 | NUR ---
PT IN PHYSICAL THERAPY GYM.
--- NOTE | 2019-02-11 13:53 | NUR ---
PT IS IN PHYSICAL THERAPY GYM.
--- NOTE | 2019-02-11 14:59 | NUR ---
PT LYING IN BED. EYES CLOSED. CHEST RISING AND FALLING. BED LOW. CL IN REACH.
--- NOTE | 2019-02-11 20:00 | NUR ---
PATIENT RECEIVED SITTING UP IN BED WATCHING TV. NO C/O PAIN OR DISTRESS. ASSESSMENT & VITAL SIGNS DONE. BED LOW. CALL LIGHT & URINAL WITHIN REACH. WILL CONTINUE TO MONITOR.
[2019-02-11 20:44] VITALS: BP 138/76
--- NOTE | 2019-02-12 01:12 | NUR ---
I have reviewed this patient and I concur with the Shift Assessment completed by the Licensed Practical Nurse today this shift.
--- NOTE | 2019-02-12 03:30 | NUR ---
PATIENT EYES CLOSED. CPAP CONTINUES. BED LOW. CALL LIGHT & URINAL WITHIN REACH. WILL CONTINUE TO MONITOR.
[2019-02-12 08:00] VITALS: BP 151/86
--- NOTE | 2019-02-12 14:40 | NUR ---
PT RESTING IN BED WITH EYES OPEN CALL LIGHT IN REACH NO PROBLEMS WILL MONITER
--- NOTE | 2019-02-12 16:00 | NUR ---
A REFERRAL TO [facility]O POSSIBLE ADMISSION. WILL CONTINUE TO FOLLOW WITH PATIENT TENATIVE DISCHARGE DATE IS 02/13/19.
--- NOTE | 2019-02-12 18:13 | NUR ---
PT RESTING IN BED WITH EYES OPEN CALL LIGHT IN REACH NO PROBLEMS WILL MONITER
--- NOTE | 2019-02-12 18:37 | NUR ---
I have reviewed this patient and I concur with the Shift Assessment completed by the Licensed Practical Nurse today this shift.
--- NOTE | 2019-02-12 19:35 | NUR ---
PT RESTING QUIETLY. CL IN REACH. NO DISTRESS NOTED. CPAP ON. TOLERATING WELL. BED IN LOW SIDE RAILS X3. A/O X4. LUNGS DIMINISHED. BOWEL ACTIVE X4. WCTM
[2019-02-12 22:15] VITALS: BP 127/67
--- NOTE | 2019-02-13 01:12 | NUR ---
I have reviewed this patient and I concur with the Shift Assessment completed by the Licensed Practical Nurse today this shift.
--- NOTE | 2019-02-13 03:35 | NUR ---
PT RESTING QUIETLY. CL IN REACH. NO DISTRESS NOTED. WCTM
--- NOTE | 2019-02-13 06:36 | NUR ---
REMOVED CPAP. ON 8L HIGH FLOW. O2 STAT 96% ON JUST NC. WCTM
[2019-02-13 08:04] VITALS: BP 160/85
[2019-02-13] MEDS ORDERED: K-DUR20 MEQ PO (08:46)
--- NOTE | 2019-02-13 08:47 | RHP ---
PATIENT: JUANITA GARVEY MEDICAL RECORD: [id number] ACCOUNT: [id number] LOCATION:[facility] : 50 ADMISSION DATE: 01/31/19 REHABILITATION HISTORY AND PHYSICAL EXAMINATION POST ADMISSION PHYSICIAN EXAMINATION ADMITTING DIAGNOSIS: Non-ST segment elevation myocardial infarction. HISTORY OF PRESENT ILLNESS: The patient is an elderly gentleman who actually presented to the ED secondary to a non-ST segment CO. He was actually found down at home, he was lethargic and hypoxic. He had been placed on BiPAP and transferred from [facility]. He had been seen in the ED there, diagnosed with non-ST segment elevation CO and hypoxia. The patient also was noted to have some rib fractures. His initial labs did show some elevated cardiac enzymes and he was in a controlled atrial fib. He was admitted to the ICU, placed on oxygen. He is oriented and answered questions regarding his past history. He states that he lost his balance and fell, but does not remember how long he was there. He states that he has had a CVA approximately 5 years ago. Family member stated that his house was in somewhat of a disarray. Previously, he lived alone, was independent with ADLs and mobility and currently, he is mod-to-max assist for ADLs and mobility secondary to pain from multiple rib fractures, hypoxia, and increased oxygen demands. He is also fatigued. He is currently on telemetry on supplemental O2. He is on IV antibiotic therapy. He is deconditioned, debility, impaired mobility, gait disturbance, high fall risk, and self-care deficits. These are all barriers to his discharge home. The patient wants to regain his strength and return home at his prior level of functioning. COMORBIDITIES: Include non-ST segment CO, acute hypoxic respiratory failure, and COPD. He has pleural effusions, normocytic anemia, hypoxia, hypertension, history of CVA here for peripheral vascular disease, atrial fibrillation, chronic back pain, osteoarthritis, tobacco dependence, debility, and syncope. PAST MEDICAL HISTORY: Significant for CVA, hypertension, atrial fib, arthritis, tobacco use. PAST SURGICAL HISTORY: None. ALLERGIES: PENICILLIN. CURRENT MEDICATIONS: Include lisinopril 10 mg daily. He is on Lasix 40 mg daily. He is on Lexapro 20 mg daily, Plavix 75 mg daily, aspirin chewable 81 mg daily, Protonix 40 mg daily, acetaminophen 650 q.4 hours p.r.n., Betapace 40 mg b.i.d., Zocor 20 mg at bedtime. He is on an electrolyte protocol at this time. He is on Atrovent updrafts. He is on budesonide 0.5 mg b.i.d. and Brovana 15 mcg b.i.d. HABITS: Does have a history of tobacco use. FAMILY HISTORY: Noncontributory. SOCIAL HISTORY: The patient hopes to return back home. We have to come look into his social situation upon return. REVIEW OF SYSTEMS: HISTORY AND PHYSICAL [id number] JUANITA GARVEY GENERAL: Does complain of some weakness and fatigue. HEENT: Denies cold, cough, or congestion. CARDIOVASCULAR: Denies any chest pain other than the rib fractures. PHYSICAL EXAMINATION: VITAL SIGNS: Stable, afebrile. GENERAL: A somewhat obese gentleman, in no acute distress, alert upon exam. HEENT: Normocephalic and atraumatic. Mucosa moist. NECK: Supple. No lymphadenopathy. LUNGS: Clear at this time. No wheezing or rales. HEART: Irregular rate and rhythm. ABDOMEN: Benign. EXTREMITIES: No clubbing, cyanosis or edema. NEUROLOGIC: He does have noted 3/5 muscular strength in his lower extremities. LABORATORY DATA: White count is 12.1, H&H of 13 and 41, and platelet count was 222. His sodium 139, potassium 3.8, BUN and creatinine of 35 and 1.0, and blood sugar is noted to be 129. ASSESSMENT: This is a 68-year-old gentleman admitted to the rehab with a working diagnosis of debility secondary to a non-ST segment myocardial infarction. The patient has potential to make improvement. We instituted the following multidisciplinary therapies include, but not limited to physical, occupational, respiratory, speech, nutritional services, prosthetics and orthotics. Given her complex medical conditions and risks for more complications, rehabilitation services cannot be provided at a low level of care such as skilled nurse facility. PLAN: 1. Admit to [facility] for intensive inpatient therapy to include the following disciplines: A. Physical therapy to improve gait, all transfer skills and bed mobility to a modified independent level. B. Occupational therapy to a modified independent level. C. Case management to assist with discharge planning and placement options. D. Nutrition to assist with nutritional needs. E. Rehabilitation nursing to assist in monitoring with an underlying medical conditions and to assist with any type of bowel or bladder management. 2. The patient's current medication and medical care will be continued. 3. The patient will be placed on standard fall precautions. 4. The patient will be continued on aspirin and Plavix and I will see again in the a.m. TRANSINT:[id number] Voice Confirmation ID: [id number] DOCUMENT ID: [id number] NYDIA notes whether there has been none or any medical/functional change since admission: - NO CHANGE SINCE PRESCREEN. NYDIA attests patient continues to be appropriate for IRF: - CONTINUES TO BE APPROPRIATE. HISTORY AND PHYSICAL [id number] JUANITA GARVEY,ROSALVA HOLM MD at 0847 CC: [id number] DICTATION DATE: 02/01/19 09 ADJUNCT PHILOSOPHY FACULTY: 02/01/19 1027 ADM IN [place] [id number] [place] [address]
--- NOTE | 2019-02-13 10:01 | NUR ---
PATIENT DISCHARGING TO [facility] AND WILL TRANSPORT THERE VIA AMBULANCE. NO HOME HEALTH OR DME NEEDED AT THIS TIME. DR. CARTER 06/04/19 @ 2:45, DR. THEODORE 03/15/19 @ 11:00 , AN APPOINTMENT WITH [facility] IN [place] WILL BE MADE AT TIME OF DISCHARGE FROM FACILITY.PATIENT CHOICE FORM AND IMFM FORMS SIGNED, COPY GIVEN TO PATIENT AND FILED IN CHART. DISCHARGE INSTRUCTIONS FAXED TO SNF AND REVIEWED WITH PATIENT . LEFT MESSAGE ON SISTERS VOICE MAIL TO THE NAME OF SNF WHERE PATIENT HAS DISCHARGED
--- NOTE | 2019-02-13 13:56 | NUR ---
PT RESTING IN BED WITH EYES OPEN CALL LIGHT IN REACH WILL MONITER
--- NOTE | 2019-02-13 14:45 | NUR ---
PT DISCHARGED TO [facility] IN [place].REPORT CALLED PAPER WORK SENT WITH AMB[facility]ANCE [facility]. PT TOLERATED TRANFER WELL
--- NOTE | 2019-04-09 09:55 | DS ---
PATIENT:JUANITA GARVEY :50 MEDICAL RECORD: [id number] DISCHARGE SUMMARY ADMISSION DATE: 01/31/19 DISCHARGE DATE: 02/13/19 This is a discharge dated 02/13/2019 from inpatient rehabilitation. PRIMARY DIAGNOSIS: Decreased functional ability and ability to provide activities of daily living secondary to a non-ST elevation myocardial infarction. SECONDARY DIAGNOSES: 1. Rib fractures. 2. Status post fall. 3. Atrial fibrillation. 4. Acute respiratory failure with hypoxia. 5. Chronic obstructive pulmonary disease. 6. Anemia. 7. Peripheral vascular disease. 8. Chronic back pain. 9. Hyperlipidemia. 10. Osteoarthritis. 11. Tobacco abuse. 12. History of cerebrovascular accident. HOSPITAL COURSE: Full H&P is located elsewhere on the chart on this 68-year-old male who was admitted to inpatient rehab for physical therapy and occupational therapy to improve gait, transfer skills, bed mobility, and activities of daily living to a modified independent level. He was evaluated by PT and OT and their plans of care were followed. He required [facility] care for observation and assessment and medication administration. He had supplemental oxygen to keep sats greater than 90%. He was requiring high flow at times. He also had BiPAP that he used as needed. He had inhaled medications for respiratory support. He was cooperative with therapies, progressing towards goals. Case management was involved for discharge planning. He was considered stable for discharge on 02/13/2019, however, he met none of his PT goals, but he did make significant progress. He met 2/5 short-term and 2/7 long-term occupational therapy goals. Continue therapy was recommended at discharge. DISCHARGE MEDICATIONS: As per discharge medication reconciliation. DISCHARGE DISPOSITION: The patient was discharged to [facility] for continued therapy and skilled care. He will continue his current diet and level of activity. He will follow with primary care at the rehab facility and then with his PCP upon discharge from there. He will follow up with specialists as directed. At least 30 minutes was spent in this discharge activity. TRANSINT:[id number] Voice Confirmation ID: [id number] DOCUMENT ID: [id number] Dictated By: TORO LEON I have interviewed/examined the above patient and agree with these documented findings. DISCHARGE SUMMARY REPORT [id number] JUANITA GARVEY,ROSALVA HOLM MD at 0958 at 0955 CC: [id number] DICTATION DATE: 04/07/19 173 NURSE PRACTITIONER PHYSICIAN ASSISTANT: 04/08/19 0120 DIS IN 02/13/19 [place] [id number] [place] [id number]
== END 2019-02-13 17:59 | DRG 280 ==
LOC: D.REHAB 16:19
PROVIDERS: ADMIT Emergency Medicine; ATTEND Emergency Medicine
DX: I21.3 ST elevation (STEMI) myocardial infarction of unspecified site (principal); J96.01 Acute respiratory failure with hypoxia; J90 Pleural effusion, not elsewhere classified; J44.1 Chronic obstructive pulmonary disease with (acute) exacerbation; D64.9 Anemia, unspecified; I10 Essential (primary) hypertension; I48.91 Unspecified atrial fibrillation; M54.5 Low back pain; R53.81 Other malaise; R55 Syncope and collapse; K21.9 Gastro-esophageal reflux disease without esophagitis; F17.200 Nicotine dependence, unspecified, uncomplicated; Z86.73 Personal history of transient ischemic attack (TIA), and cerebral infarction without residual deficits